=== PATIENT | male | born 1955 | race Two or more races ===

== ENCOUNTER 2016-09-05 18:52 | Inpatient (IN) | payer MEDICAID, OTHER ==
[~2016-09-05] VITALS: Ht 175.3 cm; Wt 86.5 kg
[~2016-09-05 18:52] MED LIST: HYDR10SO2; HYDR12.524; LISI-275; LISI-646; LORA-655; METO-158 PO; NIFEDICAL PO; [UNRECOGNIZED DRUG - CODE]
[2016-09-05] MEDS ORDERED: SODIUM CHLORIDE 0.9% 1,000 ML IV ONE (21:09)
[2016-09-05] MEDS ORDERED: ASPirin 81 mg TAB PO ONE (21:15)
[2016-09-05 21:52] LABS: Basophils # (auto) 0 uL; Basophils % (auto) 0.4 % (0.0-2.0); Eosinophils # (auto) 0 uL; Eosinophils % (auto) 0.3 % (0.0-7.0); Hematocrit 47.3 % (41.0-53.0); Lymphocytes # (auto) 1.7 uL; Lymphocytes % (auto) 20.4 % (10.0-50.0); Mean Corpuscular Hemoglobin 29.3 pg (28.0-32.0); Mean Corpuscular Hgb Conc. 33.8 g/dL (32.0-36.0); Mean Corpuscular Volume 86.7 fL (80.0-100.0); Mean Platelet Volume 7.9 fL (7.4-10.4); Monocytes # (auto) 0.3 uL; Monocytes % (auto) 3.8 % (0.0-12.0); Neutrophils # (auto) 6.1 uL; Neutrophils % (auto) 75.1 % (37.0-80.0); Platelet Count (auto) 236 10^3/uL (140-450); Red Cell Distribution Width 13.5 % (11.6-16.0); White Blood Cell 8.1 10^3/uL (4.4-10.8)
[2016-09-05 22:12] LABS: INR 1.04 (0.9-1.15); Partial Thromboplastin Time 27.1 sec (22.64-33.71); Prothrombin Time 10.7 sec (9.37-12.3)
[2016-09-05 22:17] LABS: Albumin 3.5 g/dL (3.4-5.0); BUN/Creatinine Ratio 13.1; Magnesium 2.3 mg/dL (1.6-2.6); Potassium 3.3 mmol/L (3.5-5.1)
[2016-09-05 22:36] LABS: Bilirubin, Total 0.3 mg/dL (0.2-1.0)
[2016-09-05 22:48] LABS: B-Type Natriuretic Peptide 55.16 pg/mL (0-100)
[2016-09-05 22:50] LABS: Temperature: 22.7 C (20.0-25.0)
[2016-09-06] VITALS (7 sets, daily range): BP systolic 143–164; BP diastolic 78–101
[2016-09-06] MEDS ORDERED: MORPHINE SULF INJ 2 MG/ML SYRINGE 1ML IV PRN
[2016-09-06] MEDS ORDERED: NITROGLYCERIN 0.4 MG SL TAB SL PRN
[2016-09-06] MEDS ORDERED: METOPROLOL TARTRATE 50 MG TAB PO ONE
[2016-09-06] MEDS ORDERED: ACETAMINOPHEN 325 MG TAB PO PRN
[2016-09-06] MEDS ORDERED: HYDROcodone-ACET 5/325MG TAB PO PRN
[2016-09-06] MEDS ORDERED: ONDANSETRON HCL 4 MG/2 ML VIAL IV PRN
[2016-09-06 06:03] LABS: Basophils # (auto) 0 uL; Basophils % (auto) 0.4 % (0.0-2.0); Eosinophils # (auto) 0.1 uL; Eosinophils % (auto) 0.9 % (0.0-7.0); Hematocrit 45.2 % (41.0-53.0); Hemoglobin 15.1 g/dL (13.5-17.5); Lymphocytes # (auto) 2.8 uL; Mean Corpuscular Hemoglobin 29.2 pg (28.0-32.0); Mean Corpuscular Hgb Conc. 33.4 g/dL (32.0-36.0); Mean Corpuscular Volume 87.6 fL (80.0-100.0); Mean Platelet Volume 8.1 fL (7.4-10.4); Monocytes # (auto) 0.7 uL; Monocytes % (auto) 7.6 % (0.0-12.0); Neutrophils # (auto) 5.4 uL; Neutrophils % (auto) 60.1 % (37.0-80.0); Platelet Count (auto) 242 10^3/uL (140-450)
[2016-09-06 06:35] LABS: Albumin 3.2 g/dL (3.4-5.0); BUN/Creatinine Ratio 17.1; Bilirubin, Total 0.7 mg/dL (0.2-1.0); Calcium 7.9 mg/dL (8.5-10.1); Total Protein 6.3 g/dL (6.4-8.2)
[2016-09-06 06:40] LABS: Potassium 2.9 mmol/L (3.5-5.1)
[2016-09-06] MEDS ORDERED: POTASSIUM CHL 20 Meq TABLET PO ONE (07:00)
[2016-09-06] MEDS: ASPirin 81 mg TAB PO SCH (09:20)
[2016-09-06] MEDS: FAMOTIDINE 20 MG TAB PO SCH ×2 (09:21→20:54)
[2016-09-06] MEDS: ENOXAPARIN SOD 40 MG/0.4 ML SYRINGE SC SCH (09:22)
[2016-09-06] MEDS: METOPROLOL TARTRATE 50 MG TAB PO SCH ×2 (09:22→20:54)
[2016-09-06] MEDS ORDERED: POTASSIUM CHL 20 Meq TABLET PO SCH (10:00)
[2016-09-06] MEDS ORDERED: POTASSIUM CHLORIDE 40 MEQ, LIDOCAINE 1% (LOCAL ANESTH.) 4 ML in SODIUM CHL 0.9% 250 ML IV ONE (10:00)
[2016-09-06] MEDS ORDERED: LISINOPRIL 5 MG TAB PO SCH (10:00)
[2016-09-06 10:20] LABS: Urine Bilirubin Negative (Negative); Urine Blood Negative /uL (Negative); Urine Color Yellow (Yellow); Urine Glucose Normal (Normal); Urine Ketone Negative (Negative); Urine Nitrite Negative (Negative); Urine RBC <1 /hpf (0 - 3); Urine Urobilinogen Normal (Negative)
[2016-09-06] MEDS: POTASSIUM CHL 20 Meq TABLET PO SCH ×2 (11:19→20:52)
[2016-09-07 05:01] VITALS: BP 149/86
[2016-09-07 05:43] LABS: BUN/Creatinine Ratio 14.3; Calcium 8.3 mg/dL (8.5-10.1); Magnesium 2.4 mg/dL (1.6-2.6); Potassium 3.3 mmol/L (3.5-5.1)
[2016-09-07 06:00] VITALS: BP_SYST 135; BP_SYST 140; BP_DIAS 77; BP_DIAS 85
[2016-09-07] MEDS ORDERED: POTASSIUM CHLORIDE 40 MEQ, LIDOCAINE 1% (LOCAL ANESTH.) 4 ML in SODIUM CHL 0.9% 250 ML IV ONE (10:30)
[2016-09-07] MEDS: ASPirin 81 mg TAB PO SCH (10:38)
[2016-09-07] MEDS: FAMOTIDINE 20 MG TAB PO SCH ×2 (10:38→21:56)
[2016-09-07] MEDS: POTASSIUM CHL 20 Meq TABLET PO SCH ×2 (10:39→21:56)
[2016-09-07] MEDS: METOPROLOL TARTRATE 50 MG TAB PO SCH ×2 (10:39→21:57)
[2016-09-07] MEDS: ENOXAPARIN SOD 40 MG/0.4 ML SYRINGE SC SCH (10:40)
[2016-09-07] MEDS: LISINOPRIL 10 MG TAB PO SCH (10:40)
[2016-09-07 13:00] VITALS: BP 156/96
[2016-09-07 17:00] VITALS: BP 149/99
[2016-09-07] MEDS: LABETALOL HCL 5 MG/ML 4ML SYRINGE IV PRN (21:14)
[2016-09-07 21:47] VITALS: BP 170/102
[2016-09-08 05:06] VITALS: BP 151/96
[2016-09-08 06:09] LABS: BUN/Creatinine Ratio 15.1; Calcium 8.6 mg/dL (8.5-10.1); Potassium 3.4 mmol/L (3.5-5.1)
[2016-09-08] MEDS: LABETALOL HCL 5 MG/ML 4ML SYRINGE IV PRN ×3 (07:56→15:35)
[2016-09-08 08:00] VITALS: BP 159/103
[2016-09-08 09:00] VITALS: BP 159/103
[2016-09-08] MEDS: ASPirin 81 mg TAB PO SCH (09:26)
[2016-09-08] MEDS: FAMOTIDINE 20 MG TAB PO SCH ×2 (09:26→22:27)
[2016-09-08] MEDS: ENOXAPARIN SOD 40 MG/0.4 ML SYRINGE SC SCH (09:26)
[2016-09-08] MEDS: POTASSIUM CHL 20 Meq TABLET PO SCH ×2 (09:26→22:27)
[2016-09-08] MEDS: METOPROLOL TARTRATE 50 MG TAB PO SCH ×2 (09:27→22:29)
[2016-09-08] MEDS: LISINOPRIL 10 MG TAB PO SCH (09:27)
[2016-09-08] MEDS ORDERED: LISINOPRIL 20 MG TAB PO SCH (10:00)
[2016-09-08 13:00] VITALS: BP 170/101
[2016-09-08] MEDS ORDERED: LISINOPRIL 20 MG TAB PO ONE (15:15)
[2016-09-08 16:33] VITALS: BP 159/104
[2016-09-08] MEDS: LISINOPRIL 20 MG TAB PO SCH (22:31)
[2016-09-08 22:42] VITALS: BP 134/69
[2016-09-09] VITALS (10 sets, daily range): BP systolic 119–165; BP diastolic 80–100
[2016-09-09] MEDS: METOPROLOL TARTRATE 50 MG TAB PO SCH (09:21)
[2016-09-09] MEDS: ASPirin 81 mg TAB PO SCH (09:21)
[2016-09-09] MEDS: LISINOPRIL 20 MG TAB PO SCH (09:22)
[2016-09-09] MEDS: ENOXAPARIN SOD 40 MG/0.4 ML SYRINGE SC SCH (09:22)
[2016-09-09] MEDS: POTASSIUM CHL 20 Meq TABLET PO SCH (09:22)
[2016-09-09] MEDS: FAMOTIDINE 20 MG TAB PO SCH (09:22)
== END 2016-09-09 18:10 | disposition home or self-care (01) | DRG 201 ==
LOC: EDBD 18:52 → ER 19:09 → TELE 19:10 → TELE-WESTW 09-06 01:19
PROVIDERS: ADMIT Internal Medicine; ATTEND Internal Medicine
DX: R00.2 Palpitations (principal); E44.1 Mild protein-calorie malnutrition; I10 Essential (primary) hypertension; E87.6 Hypokalemia; N40.0 Benign prostatic hyperplasia without lower urinary tract symptoms; Z82.49 Family history of ischemic heart disease and other diseases of the circulatory system; F41.9 Anxiety disorder, unspecified; I48.91 Unspecified atrial fibrillation; Z68.28 Body mass index [BMI] 28.0-28.9, adult
CPT/HCPCS: 36415; 71010; 80048; 80053; 81001; 83735; 83880; 84443; 84484; 85025; 85610; 85730; 93005; 93306; 96360; 99291; J2001; J2405; J3490

== ENCOUNTER 2016-09-10 15:31 | Observation (INO) | payer MEDICAID ==
[~2016-09-10] VITALS: Ht 167.6 cm; Wt 81.6 kg
[~2016-09-10 15:31] MED LIST changes: -HYDR10SO2; -HYDR12.524; -LISI-646; -LORA-655; -NIFEDICAL PO; -[UNRECOGNIZED DRUG - CODE]
[2016-09-10 16:08] LABS: Basophils # (auto) 0 uL; Basophils % (auto) 0.4 % (0.0-2.0); Eosinophils # (auto) 0 uL; Eosinophils % (auto) 0.3 % (0.0-7.0); Hemoglobin 16.4 g/dL (13.5-17.5); Lymphocytes # (auto) 1.6 uL; Lymphocytes % (auto) 20.3 % (10.0-50.0); Mean Corpuscular Hemoglobin 29.2 pg (28.0-32.0); Mean Corpuscular Hgb Conc. 33.4 g/dL (32.0-36.0); Mean Corpuscular Volume 87.5 fL (80.0-100.0); Mean Platelet Volume 7.8 fL (7.4-10.4); Monocytes # (auto) 0.5 uL; Monocytes % (auto) 6.5 % (0.0-12.0); Neutrophils # (auto) 5.8 uL; Neutrophils % (auto) 72.5 % (37.0-80.0); Platelet Count (auto) 257 10^3/uL (140-450); Red Cell Distribution Width 12.8 % (11.6-16.0)
[2016-09-10 16:19] LABS: INR 1.09 (0.9-1.15); Partial Thromboplastin Time 27.5 sec (22.64-33.71); Prothrombin Time 11.2 sec (9.37-12.3)
[2016-09-10 16:30] LABS: Albumin 3.7 g/dL (3.4-5.0); Alkaline Phosphatase 103 U/L (45-117); Anion Gap 10 (5-15); Aspartate Aminotransferase 29 U/L (15-37); BUN/Creatinine Ratio 15.2; Bilirubin, Total 0.8 mg/dL (0.2-1.0); Blood Urea Nitrogen 15 mg/dL (7-18); Calcium 8.5 mg/dL (8.5-10.1); Carbon Dioxide 25 mmol/L (21-32); Chloride 105 mmol/L (98-107); GFR African American 100 mL/min; GFR Non-African American 82 mL/min; Glucose 102 mg/dL (74-106); Magnesium 2.5 mg/dL (1.6-2.6); Potassium 4.1 mmol/L (3.5-5.1); Sodium 140 mmol/L (136-145); Total Protein 7.4 g/dL (6.4-8.2)
[2016-09-10] MEDS ORDERED: cloNIDine HCL 0.1 MG TAB PO ONE ×2 (18:30→22:30)
[2016-09-10] MEDS ORDERED: ASPirin-EC 81 mg tab PO ONE (22:00)
[2016-09-10] MEDS ORDERED: hydrALAZINE HCL 20 MG/ML VL IV ONE (23:15)
[2016-09-10] MEDS ORDERED: hydrALAZINE HCL 20 MG/ML VL ONE (23:32)
[2016-09-11 00:43] VITALS: BP 122/69
== END 2016-09-11 01:18 | disposition home or self-care (01) | DRG 198 ==
LOC: ER 15:31 → EDBD 15:31 → EDUNIT# 15:31 → UNDOADMOB 15:32 → TELE 15:32 → ER 09-11 01:18 → UNDODISOB 09-11 01:19
PROVIDERS: ADMIT Family Medicine; ATTEND Family Medicine
DX: R07.2 Precordial pain (principal); I25.10 Atherosclerotic heart disease of native coronary artery without angina pectoris; G45.9 Transient cerebral ischemic attack, unspecified; I10 Essential (primary) hypertension; Z82.49 Family history of ischemic heart disease and other diseases of the circulatory system; F41.9 Anxiety disorder, unspecified
CPT/HCPCS: 36415; 70450; 71020; 80053; 83735; 84484; 85025; 85610; 85730; 93005; 96374; 99285; G0378; J0360

== ENCOUNTER 2017-01-20 18:14 | Inpatient (IN) | payer MEDICAID ==
[~2017-01-20] VITALS: Ht 167.6 cm; Wt 80.9 kg
[2017-01-20 19:12] LABS: Urine RBC None Seen /hpf (0 - 3)
[2017-01-20 19:18] LABS: Urine Bilirubin Negative (Negative); Urine Blood Negative /uL (Negative); Urine Color Yellow (Yellow); Urine Glucose Normal (Normal); Urine Ketone Negative (Negative); Urine Nitrite Negative (Negative); Urine Urobilinogen Normal (Negative); Urine pH 6.5 (5.0-8.0)
[2017-01-20 19:24] LABS: Basophils # (auto) 0 uL; Basophils % (auto) 0.4 % (0.0-2.0); CONDITION Y; Eosinophils # (auto) 0 uL; Eosinophils % (auto) 0.1 % (0.0-7.0); Hematocrit 47.5 % (41.0-53.0); Hemoglobin 16.5 g/dL (13.5-17.5); Lymphocytes # (auto) 1.2 uL; Lymphocytes % (auto) 19.3 % (10.0-50.0); Mean Corpuscular Hgb Conc. 34.7 g/dL (32.0-36.0); Mean Corpuscular Volume 89.3 fL (80.0-100.0); Mean Platelet Volume 8.1 fL (7.4-10.4); Monocytes # (auto) 0.5 uL; Monocytes % (auto) 7.4 % (0.0-12.0); Neutrophils # (auto) 4.6 uL; Neutrophils % (auto) 72.8 % (37.0-80.0); Platelet Count (auto) 214 10^3/uL (140-450); Red Cell Distribution Width 13.2 % (11.6-16.0); White Blood Cell 6.3 10^3/uL (4.4-10.8)
[2017-01-20 19:41] LABS: Partial Thromboplastin Time 27.3 sec (22.64-33.71); Prothrombin Time 10.9 sec (9.37-12.3)
[2017-01-20 19:42] LABS: Albumin 3.7 g/dL (3.4-5.0); Alkaline Phosphatase 104 U/L (45-117); Anion Gap 10 (5-15); Aspartate Aminotransferase 14 U/L (15-37); BUN/Creatinine Ratio 13.3; Bilirubin, Total 0.4 mg/dL (0.2-1.0); Blood Urea Nitrogen 13 mg/dL (7-18); Calcium 8.2 mg/dL (8.5-10.1); Carbon Dioxide 24 mmol/L (21-32); Chloride 101 mmol/L (98-107); GFR African American 100 mL/min; GFR Non-African American 83 mL/min; Glucose 108 mg/dL (74-106); Magnesium 2.6 mg/dL (1.6-2.6); Potassium 4.1 mmol/L (3.5-5.1); Sodium 135 mmol/L (136-145); Total Protein 7.5 g/dL (6.4-8.2)
[2017-01-20] MEDS ORDERED: KETOROLAC TROMETH 30 MG/ML 1ML VIAL IM ONE (20:30)
[2017-01-21] VITALS (7 sets, daily range): BP systolic 130–156; BP diastolic 72–96
[2017-01-21] MEDS ORDERED: ACETAMINOPHEN 325 MG TAB PO PRN (03:30)
[2017-01-21] MEDS ORDERED: HYDROcodone-ACET 5/325MG TAB PO PRN (03:30)
[2017-01-21 04:11] LABS: Hematocrit 45.1 % (41.0-53.0); Hemoglobin 15.5 g/dL (13.5-17.5)
[2017-01-21] MEDS ORDERED: NIFE30TA76 PO (05:00)
[2017-01-21] MEDS ORDERED: ASPI-231 PO (05:00)
[2017-01-21] MEDS: METOPROLOL TARTRATE 50 MG TAB PO SCH ×3 (09:58→22:40)
[2017-01-21] MEDS: NIFEdipine ER 30 MG TAB PO SCH (10:05)
[2017-01-21] MEDS: PANTOPRAZOLE SODIUM 40 MG/10 ML VIAL IV SCH (10:11)
[2017-01-21] MEDS ORDERED: GOLYTELY 4L KIT PO ONE (12:15)
[2017-01-21] MEDS ORDERED: MAGNESIUM CITRATE SOLUTION 300 ML BTL PO ONE ×2 (15:30→15:45)
[2017-01-21] MEDS ORDERED: diphenhdrAMINE HCL 12.5 MG/5 ML UD PO ONE (15:30)
[2017-01-21] MEDS: TAMSULOSIN HYDROCHLORIDE 0.4 MG CAP PO SCH (17:55)
[2017-01-21] MEDS: ATORVASTATIN 20 MG TAB PO SCH (22:00)
[2017-01-22] MEDS: TAMSULOSIN HYDROCHLORIDE 0.4 MG CAP PO ONE ×2 (00:15→00:45)
[2017-01-22 05:23] VITALS: BP 142/76
[2017-01-22 07:08] LABS: Basophils # (auto) 0 uL; Basophils % (auto) 0.5 % (0.0-2.0); CONDITION Y; Eosinophils # (auto) 0.1 uL; Eosinophils % (auto) 0.8 % (0.0-7.0); Hematocrit 45.5 % (41.0-53.0); Hemoglobin 15.7 g/dL (13.5-17.5); Lymphocytes # (auto) 2.8 uL; Lymphocytes % (auto) 37.6 % (10.0-50.0); Mean Corpuscular Hemoglobin 30.7 pg (28.0-32.0); Mean Corpuscular Hgb Conc. 34.5 g/dL (32.0-36.0); Mean Corpuscular Volume 88.8 fL (80.0-100.0); Monocytes # (auto) 0.8 uL; Monocytes % (auto) 10.1 % (0.0-12.0); Neutrophils # (auto) 3.8 uL; Platelet Count (auto) 246 10^3/uL (140-450); Red Cell Distribution Width 13.3 % (11.6-16.0); White Blood Cell 7.5 10^3/uL (4.4-10.8)
[2017-01-22] MEDS ORDERED: diphenhdrAMINE HCL 50 MG/1 ML VL ONE (07:15)
[2017-01-22] MEDS ORDERED: SODIUM CHLORIDE LOCK 10 ML ONE (07:15)
[2017-01-22] MEDS ORDERED: LIDOCAINE VISCOUS 2% 15ML UD ONE (07:15)
[2017-01-22] MEDS ORDERED: MIDAZOLAM HCL 5 MG/ML-1ML VIAL ONE (07:15)
[2017-01-22 07:35] LABS: Albumin 3.3 g/dL (3.4-5.0); BUN/Creatinine Ratio 9.3; Bilirubin, Total 0.4 mg/dL (0.2-1.0); Calcium 8.5 mg/dL (8.5-10.1); Potassium 3.8 mmol/L (3.5-5.1); Total Protein 6.5 g/dL (6.4-8.2)
[2017-01-22 09:00] VITALS: BP 139/86
[2017-01-22] MEDS: PANTOPRAZOLE SODIUM 40 MG/10 ML VIAL IV SCH (09:41)
[2017-01-22] MEDS: METOPROLOL TARTRATE 50 MG TAB PO SCH ×2 (09:45→21:46)
[2017-01-22] MEDS: NIFEdipine ER 30 MG TAB PO SCH (09:45)
[2017-01-22] MEDS: fentaNYL CITRATE 100 MCG/2 ML VL ONE ×2 (10:39→10:42)
[2017-01-22] MEDS ORDERED: fentaNYL CITRATE 100 MCG/2 ML VL ONE (10:40)
[2017-01-22 13:00] VITALS: BP 152/91
[2017-01-22] MEDS: ONDANSETRON HCL 4 MG/2 ML VIAL IV PRN (14:24)
[2017-01-22] MEDS ORDERED: BISMUTH SUBSALICYLATE 262MG/15ml ORAL Susp PO ONE (15:30)
[2017-01-22 17:00] VITALS: BP 148/97
[2017-01-22] MEDS: TAMSULOSIN HYDROCHLORIDE 0.4 MG CAP PO SCH (18:00)
[2017-01-22] MEDS: ATORVASTATIN 20 MG TAB PO SCH (21:46)
[2017-01-22 22:04] VITALS: BP 152/93
[2017-01-23 05:21] VITALS: BP 155/89
[2017-01-23 05:44] LABS: Basophils # (auto) 0 uL; Basophils % (auto) 0.5 % (0.0-2.0); CONDITION Y; Eosinophils # (auto) 0 uL; Eosinophils % (auto) 0.6 % (0.0-7.0); Hematocrit 46.1 % (41.0-53.0); Hemoglobin 15.7 g/dL (13.5-17.5); Lymphocytes # (auto) 2.5 uL; Lymphocytes % (auto) 31.5 % (10.0-50.0); Mean Corpuscular Hemoglobin 30.4 pg (28.0-32.0); Mean Corpuscular Volume 89.4 fL (80.0-100.0); Mean Platelet Volume 8.1 fL (7.4-10.4); Monocytes # (auto) 0.5 uL; Monocytes % (auto) 6.9 % (0.0-12.0); Neutrophils # (auto) 4.8 uL; Neutrophils % (auto) 60.5 % (37.0-80.0); Platelet Count (auto) 242 10^3/uL (140-450); White Blood Cell 7.9 10^3/uL (4.4-10.8)
[2017-01-23 06:01] LABS: Albumin 3.2 g/dL (3.4-5.0); Calcium 8.2 mg/dL (8.5-10.1); Potassium 3.2 mmol/L (3.5-5.1)
[2017-01-23 06:03] LABS: BUN/Creatinine Ratio 15.3
[2017-01-23 06:06] LABS: Bilirubin, Total 0.6 mg/dL (0.2-1.0); Total Protein 6.4 g/dL (6.4-8.2)
[2017-01-23 09:00] VITALS: BP 124/74
[2017-01-23] MEDS ORDERED: POTASSIUM CHLORIDE 40 MEQ, LIDOCAINE 1% (LOCAL ANESTH.) 4 ML in SODIUM CHL 0.9% 250 ML IV ONE (09:45)
[2017-01-23] MEDS: METOPROLOL TARTRATE 50 MG TAB PO SCH ×2 (10:07→21:48)
[2017-01-23] MEDS: PANTOPRAZOLE SODIUM 40 MG/10 ML VIAL IV SCH (10:07)
[2017-01-23 13:00] VITALS: BP 136/85
[2017-01-23 16:53] VITALS: BP 149/93
[2017-01-23] MEDS: TAMSULOSIN HYDROCHLORIDE 0.4 MG CAP PO SCH (18:36)
[2017-01-23] MEDS: ONDANSETRON HCL 4 MG/2 ML VIAL IV PRN (21:13)
[2017-01-23] MEDS: HYDROCORTISONE 2.5% TOPICAL CREAM 30GM TUBE PR SCH (21:44)
[2017-01-23] MEDS: ATORVASTATIN 20 MG TAB PO SCH (21:56)
[2017-01-23 22:00] VITALS: BP 150/94
[2017-01-23] MEDS ORDERED: diphenhdrAMINE HCL 25 MG CAP PO ONE ×2 (22:09→22:15)
[2017-01-23] MEDS ORDERED: ACETAMINOPHEN 325 MG TAB PO ONE (22:15)
[2017-01-23] MEDS ORDERED: BISMUTH SUBSALICYLATE 262MG/15ml ORAL Susp PO ONE (22:30)
[2017-01-24 05:22] VITALS: BP 157/96
[2017-01-24 06:22] LABS: Basophils # (auto) 0 uL; Basophils % (auto) 0.6 % (0.0-2.0); CONDITION Y; Eosinophils # (auto) 0.1 uL; Eosinophils % (auto) 0.8 % (0.0-7.0); Hematocrit 43.9 % (41.0-53.0); Hemoglobin 15.1 g/dL (13.5-17.5); Lymphocytes # (auto) 2.6 uL; Lymphocytes % (auto) 36.3 % (10.0-50.0); Mean Corpuscular Hemoglobin 30.7 pg (28.0-32.0); Mean Corpuscular Hgb Conc. 34.3 g/dL (32.0-36.0); Mean Corpuscular Volume 89.3 fL (80.0-100.0); Mean Platelet Volume 8.3 fL (7.4-10.4); Monocytes # (auto) 0.6 uL; Monocytes % (auto) 7.7 % (0.0-12.0); Neutrophils # (auto) 3.9 uL; Neutrophils % (auto) 54.6 % (37.0-80.0); Platelet Count (auto) 240 10^3/uL (140-450); Red Cell Distribution Width 13.4 % (11.6-16.0); White Blood Cell 7.2 10^3/uL (4.4-10.8)
[2017-01-24 08:31] LABS: Potassium 3.2 mmol/L (3.5-5.1)
[2017-01-24 08:32] LABS: Albumin 3.2 g/dL (3.4-5.0); BUN/Creatinine Ratio 17.1; Bilirubin, Total 0.6 mg/dL (0.2-1.0); Calcium 8.3 mg/dL (8.5-10.1); Total Protein 6.4 g/dL (6.4-8.2)
[2017-01-24 09:00] VITALS: BP 151/95
[2017-01-24] MEDS: METOPROLOL TARTRATE 50 MG TAB PO SCH ×2 (09:22→21:53)
[2017-01-24] MEDS: PANTOPRAZOLE SODIUM 40 MG/10 ML VIAL IV SCH (09:22)
[2017-01-24] MEDS: HYDROCORTISONE 2.5% TOPICAL CREAM 30GM TUBE PR SCH ×2 (09:23→21:53)
[2017-01-24] MEDS ORDERED: BISMUTH SUBSALICYLATE 262 MG CHEW PO ONE (10:30)
[2017-01-24] MEDS: POTASSIUM CHLORIDE 40 MEQ, LIDOCAINE 1% (LOCAL ANESTH.) 4 ML in SODIUM CHL 0.9% 250 ML IV SCH ×2 (12:36→18:56)
[2017-01-24 13:00] VITALS: BP 145/86
[2017-01-24 16:47] VITALS: BP 177/92
[2017-01-24] MEDS ORDERED: diphenhdrAMINE HCL 25 MG CAP PO PRN (18:00)
[2017-01-24] MEDS: TAMSULOSIN HYDROCHLORIDE 0.4 MG CAP PO SCH (18:09)
[2017-01-24] MEDS ORDERED: diphenhdrAMINE HCL 25 MG CAP PO ONE (18:15)
[2017-01-24] MEDS: LABETALOL HCL 5 MG/ML ML 20ML VIAL IV PRN (18:34)
[2017-01-24 20:00] VITALS: BP 184/98
[2017-01-24] MEDS: ATORVASTATIN 20 MG TAB PO SCH (21:52)
[2017-01-24 22:00] VITALS: BP 184/98
[2017-01-25 05:30] VITALS: BP 174/101
[2017-01-25] MEDS: LABETALOL HCL 5 MG/ML ML 20ML VIAL IV PRN ×3 (05:53→11:48)
[2017-01-25 06:10] LABS: BUN/Creatinine Ratio 16.5; Calcium 8.1 mg/dL (8.5-10.1); Potassium 4.1 mmol/L (3.5-5.1)
[2017-01-25 09:00] VITALS: BP 169/102
[2017-01-25] MEDS ORDERED: METOPROLOL TARTRATE 50 MG TAB PO SCH (10:00)
[2017-01-25] MEDS: PANTOPRAZOLE SODIUM 40 MG/10 ML VIAL IV SCH (10:04)
[2017-01-25] MEDS: HYDROCORTISONE 2.5% TOPICAL CREAM 30GM TUBE PR SCH (10:05)
[2017-01-25 13:00] VITALS: BP 185/111
== END 2017-01-25 18:36 | disposition home or self-care (01) | DRG 254 ==
LOC: ER 18:21 → CENTRAL 18:22 → TELE-CENTR 01-24 18:09
PROVIDERS: ADMIT Internal Medicine; ATTEND Internal Medicine
PROC: 0DJ08ZZ Inspection of Upper Intestinal Tract, Via Natural or Artificial Opening Endoscopic (ICD-10-PCS; principal; 2017-01-22 10:37)
PROC: 0DBN8ZZ Excision of Sigmoid Colon, Via Natural or Artificial Opening Endoscopic (ICD-10-PCS; 2017-01-22 10:37)
DX: K64.4 Residual hemorrhoidal skin tags (principal); G45.9 Transient cerebral ischemic attack, unspecified; I10 Essential (primary) hypertension; D12.5 Benign neoplasm of sigmoid colon; R13.10 Dysphagia, unspecified; K92.2 Gastrointestinal hemorrhage, unspecified; E66.9 Obesity, unspecified; N40.0 Benign prostatic hyperplasia without lower urinary tract symptoms; E87.6 Hypokalemia; F41.9 Anxiety disorder, unspecified; I25.10 Atherosclerotic heart disease of native coronary artery without angina pectoris; K57.30 Diverticulosis of large intestine without perforation or abscess without bleeding; M47.812 Spondylosis without myelopathy or radiculopathy, cervical region; R91.1 Solitary pulmonary nodule; M77.9 Enthesopathy, unspecified; N32.0 Bladder-neck obstruction; Z82.49 Family history of ischemic heart disease and other diseases of the circulatory system; Z87.891 Personal history of nicotine dependence; Z88.8 Allergy status to other drugs, medicaments and biological substances; Z68.28 Body mass index [BMI] 28.0-28.9, adult
CPT/HCPCS: 36415; 70450; 71010; 72125; 74176; 80048; 80053; 81001; 83735; 84484; 85014; 85018; 85025; 85610; 85730; 86850; 86900; 86901; 93005; 96372; 96374; C9113; J1885; J2001; J2250; J2405

== ENCOUNTER 2017-03-13 18:47 | Inpatient (IN) | payer MEDICAID ==
[~2017-03-13] VITALS: Ht 170.2 cm; Wt 80.2 kg
[~2017-03-13 18:47] MED LIST changes: +ASPI-231 PO; -LISI-275
[2017-03-13] MEDS ORDERED: SODIUM CHLORIDE 0.9% 1,000 ML IV ONE (19:51)
[2017-03-13] MEDS ORDERED: diphenhdrAMINE HCL 50 MG/1 ML VL IV ONE (20:00)
[2017-03-13] MEDS ORDERED: methylPREDNISolone SOD SUCC 125 MG/2 ML VL IV ONE (20:00)
[2017-03-13] MEDS ORDERED: amLODIPine BESYLATE 5 MG TAB PO ONE (22:45)
[2017-03-13] MEDS ORDERED: ONDANSETRON HCL 4 MG/2 ML VIAL IV ONE (23:15)
[2017-03-13] MEDS ORDERED: HYDROmorphone HCL 2 MG/ML VL IV ONE (23:15)
[2017-03-14] MEDS ORDERED: VALSARTAN 80 MG TAB PO ONE
[2017-03-14] MEDS ORDERED: ACETAMINOPHEN 325 MG TAB PO PRN (03:45)
[2017-03-14 04:14] LABS: Basophils # (auto) 0 uL; Basophils % (auto) 0.3 % (0.0-2.0); Eosinophils # (auto) 0 uL; Hematocrit 48.1 % (41.0-53.0); Hemoglobin 16.6 g/dL (13.5-17.5); Lymphocytes # (auto) 0.3 uL; Lymphocytes % (auto) 6.3 % (10.0-50.0); Mean Corpuscular Hemoglobin 30.6 pg (28.0-32.0); Mean Corpuscular Hgb Conc. 34.6 g/dL (32.0-36.0); Mean Corpuscular Volume 88.6 fL (80.0-100.0); Mean Platelet Volume 7.3 fL (6.9-10.8); Monocytes # (auto) 0.1 uL; Monocytes % (auto) 2.9 % (0.0-12.0); Neutrophils # (auto) 4.5 uL; Neutrophils % (auto) 90.5 % (37.0-80.0); Nucleated Red Blood Cells % 0.1 %; Platelet Count (auto) 209 10^3/uL (140-450); Red Cell Distribution Width 13.3 % (11.8-14.3)
[2017-03-14 04:36] LABS: Albumin 3.4 g/dL (3.4-5.0); BUN/Creatinine Ratio 17.7; Bilirubin, Total 0.6 mg/dL (0.2-1.0); Calcium 8.6 mg/dL (8.5-10.1); Potassium 3.7 mmol/L (3.5-5.1); Total Protein 6.9 g/dL (6.4-8.2)
[2017-03-14] MEDS: METOPROLOL TARTRATE 25 MG TAB PO SCH ×2 (10:00→21:38)
[2017-03-14] MEDS: amLODIPine BESYLATE 5 MG TAB PO SCH (10:15)
[2017-03-14] MEDS: FAMOTIDINE 20 MG TAB PO SCH ×2 (10:15→21:44)
[2017-03-14] MEDS: ENOXAPARIN SOD 40 MG/0.4 ML SYRINGE SC SCH (10:16)
[2017-03-14 10:42] VITALS: BP 119/74
[2017-03-14 12:31] VITALS: BP 134/87
[2017-03-14 17:17] VITALS: BP 139/80
[2017-03-14 22:17] VITALS: BP 142/80
[2017-03-15 05:16] VITALS: BP 158/94
[2017-03-15] MEDS: HYDROcodone-ACET 5/325MG TAB PO PRN ×3 (05:18→05:32)
[2017-03-15 08:58] VITALS: BP 158/92
[2017-03-15] MEDS: FAMOTIDINE 20 MG TAB PO SCH ×2 (09:45→22:41)
[2017-03-15] MEDS: amLODIPine BESYLATE 5 MG TAB PO SCH (09:46)
[2017-03-15] MEDS: ENOXAPARIN SOD 40 MG/0.4 ML SYRINGE SC SCH (09:46)
[2017-03-15] MEDS ORDERED: METOPROLOL TARTRATE 25 MG TAB PO SCH (10:00)
[2017-03-15] MEDS ORDERED: VALSARTAN 80 MG TAB PO ONE (11:00)
[2017-03-15] MEDS: ONDANSETRON HCL 4 MG/2 ML VIAL IV PRN ×3 (11:01→22:41)
[2017-03-15 12:01] VITALS: BP_SYST 146; BP_SYST 151; BP_DIAS 88; BP_DIAS 91
[2017-03-15 14:34] VITALS: BP 131/84
[2017-03-15] MEDS ORDERED: diphenhdrAMINE HCL 50 MG/1 ML VL IM ONE (16:00)
[2017-03-15] MEDS ORDERED: diphenhdrAMINE HCL 50 MG/1 ML VL IV ONE (16:15)
[2017-03-15 17:16] VITALS: BP 147/92
[2017-03-15 21:57] VITALS: BP 153/96
[2017-03-16 05:00] VITALS: BP 157/101
[2017-03-16 08:21] VITALS: BP 135/85
[2017-03-16] MEDS ORDERED: VALSARTAN 80 MG TAB PO SCH (10:00)
[2017-03-16] MEDS ORDERED: amLODIPine BESYLATE 5 MG TAB PO SCH (10:00)
[2017-03-16] MEDS: ENOXAPARIN SOD 40 MG/0.4 ML SYRINGE SC SCH (10:44)
[2017-03-16] MEDS: FAMOTIDINE 20 MG TAB PO SCH (10:44)
[2017-03-16 12:54] VITALS: BP 146/91
[2017-03-16 16:48] VITALS: BP 157/93
[2017-03-16 18:00] VITALS: BP 157/93
== END 2017-03-16 18:40 | disposition home or self-care (01) | DRG 199 ==
LOC: EDBD 18:47 → ER 18:53 → OVERFLOW 18:54 → WEST WING 03-14 08:19
PROVIDERS: ADMIT Internal Medicine; ATTEND Internal Medicine
DX: I16.1 Hypertensive emergency (principal); F41.9 Anxiety disorder, unspecified; R06.02 Shortness of breath; I25.10 Atherosclerotic heart disease of native coronary artery without angina pectoris; N40.0 Benign prostatic hyperplasia without lower urinary tract symptoms; R51 Headache; T44.8X5A Adverse effect of centrally-acting and adrenergic-neuron-blocking agents, initial encounter; Y92.89 Other specified places as the place of occurrence of the external cause; Z82.49 Family history of ischemic heart disease and other diseases of the circulatory system; Z88.8 Allergy status to other drugs, medicaments and biological substances; Z88.4 Allergy status to anesthetic agent; Z79.82 Long term (current) use of aspirin; Z79.899 Other long term (current) drug therapy; T78.40XA Allergy, unspecified, initial encounter
CPT/HCPCS: 36415; 51702; 71010; 80053; 80061; 84443; 85025; 87081; 93005; 94761; 96361; 96374; 96375; J2405

== ENCOUNTER 2018-09-11 19:44 | Inpatient (IN) | payer MEDICAID | END 2018-09-13 16:16 | disposition home or self-care (01) | LOC: ER 19:44 → OVERFLOW 09-12 06:03 → TELE-CENTR 09-12 17:04 | DX: T78.3XXA Angioneurotic edema, initial encounter (principal); D68.69 Other thrombophilia; R65.10 Systemic inflammatory response syndrome (SIRS) of non-infectious origin without acute organ dysfunction; I48.92 Unspecified atrial flutter; I16.1 Hypertensive emergency; F41.9 Anxiety disorder, unspecified; I25.10 Atherosclerotic heart disease of native coronary artery without angina pectoris ==

== ENCOUNTER 2019-04-29 14:07 | Emergency (ER) | payer MEDICAID ==
[~2019-04-29] VITALS: Ht 167.6 cm; Wt 86.2 kg
[2019-04-29] MEDS ORDERED: cloNIDine HCL 0.1 MG TAB ONE (14:14)
[2019-04-29] MEDS ORDERED: cloNIDine HCL 0.1 MG TAB PO ONE (14:30)
[2019-04-29 14:40] LABS: Basophils # (auto) 0.1 uL; Basophils % (auto) 1.3 % (0.0-2.0); Eosinophils # (auto) 0 uL; Eosinophils % (auto) 0.9 % (0.0-7.0); Hematocrit 46.7 % (41.0-53.0); Hemoglobin 16.2 g/dL (13.5-17.5); Lymphocytes # (auto) 1.6 uL; Lymphocytes % (auto) 35.1 % (10.0-50.0); Mean Corpuscular Hemoglobin 29.2 pg (28.0-32.0); Mean Corpuscular Hgb Conc. 34.6 g/dL (32.0-36.0); Mean Corpuscular Volume 84.2 fL (80.0-100.0); Monocytes # (auto) 0.5 uL; Monocytes % (auto) 10.8 % (0.0-12.0); Neutrophils # (auto) 2.4 uL; Neutrophils % (auto) 51.9 % (37.0-80.0); Nucleated Red Blood Cells % 0.2 %; Platelet Count (auto) 167 10^3/uL (140-450); Red Blood Cells 5.55 10^6/uL (4.5-5.90); Red Cell Distribution Width 13.8 % (11.8-14.3); White Blood Cell 4.6 10^3/uL (4.4-10.8)
[2019-04-29 14:57] LABS: Albumin 3.4 g/dL (3.4-5.0); Anion Gap 6 (5-15); Blood Urea Nitrogen 17 mg/dL (7-18); Calcium 7.9 mg/dL (8.5-10.1); Carbon Dioxide 27 mmol/L (21-32); Chloride 103 mmol/L (98-107); Glucose 92 mg/dL (74-106); Potassium 3.4 mmol/L (3.5-5.1); Sodium 136 mmol/L (136-145)
[2019-04-29 15:03] LABS: Alanine Aminotransferase 41 U/L (16-61); Alkaline Phosphatase 82 U/L (45-117); Aspartate Aminotransferase 40 U/L (15-37); BUN/Creatinine Ratio 19.3; GFR African American 113 mL/min; GFR Non-African American 93 mL/min; Total Protein 7.2 g/dL (6.4-8.2)
[2019-04-29 15:23] LABS: Urine WBC None Seen /hpf (0 - 3)
[2019-04-29 15:35] LABS: Urine Bacteria NONE SEEN /hpf (None Seen); Urine Blood Negative /uL (Negative); Urine Specific Gravity 1.005 (1.001-1.035)
[2019-04-29 16:22] VITALS: BP 166/82
== END 2019-04-29 16:22 | disposition home or self-care (01) ==
LOC: ER 14:07
DX: I10 Essential (primary) hypertension (principal); R51 Headache; R42 Dizziness and giddiness; I25.10 Atherosclerotic heart disease of native coronary artery without angina pectoris; Z88.8 Allergy status to other drugs, medicaments and biological substances; Z79.82 Long term (current) use of aspirin; Z79.899 Other long term (current) drug therapy
CPT/HCPCS: 36415; 70450; 71046; 80053; 81001; 84484; 85025; 93005

== ENCOUNTER 2019-05-19 15:53 | Inpatient (IN) | payer MEDICAID ==
[~2019-05-19] VITALS: Ht 167.6 cm; Wt 91.8 kg
[2019-05-19] MEDS ORDERED: cloNIDine HCL 0.1 MG TAB PO ONE ×4 (17:00→22:15)
[2019-05-19] MEDS ORDERED: NIFEdipine ER 30 MG TAB PO ONE (17:15)
[2019-05-19 17:18] LABS: Basophils # (auto) 0.1 uL; Basophils % (auto) 0.8 % (0.0-2.0); Eosinophils # (auto) 0 uL; Eosinophils % (auto) 0.2 % (0.0-7.0); Hematocrit 45.1 % (41.0-53.0); Hemoglobin 16.2 g/dL (13.5-17.5); Lymphocytes # (auto) 1.6 uL; Lymphocytes % (auto) 21.4 % (10.0-50.0); Mean Corpuscular Hemoglobin 29.6 pg (28.0-32.0); Mean Corpuscular Hgb Conc. 35.9 g/dL (32.0-36.0); Mean Corpuscular Volume 82.4 fL (80.0-100.0); Monocytes # (auto) 0.4 uL; Monocytes % (auto) 4.9 % (0.0-12.0); Neutrophils # (auto) 5.5 uL; Neutrophils % (auto) 72.7 % (37.0-80.0); Platelet Count (auto) 202 10^3/uL (140-450); Red Blood Cells 5.47 10^6/uL (4.5-5.90); Red Cell Distribution Width 14.2 % (11.8-14.3); White Blood Cell 7.6 10^3/uL (4.4-10.8)
[2019-05-19 17:26] LABS: Albumin 3.7 g/dL (3.4-5.0); Anion Gap 6 (5-15); Blood Urea Nitrogen 18 mg/dL (7-18); Carbon Dioxide 27 mmol/L (21-32); Chloride 103 mmol/L (98-107); Glucose 92 mg/dL (74-106); Magnesium 2.4 mg/dL (1.6-2.6); Potassium 3.4 mmol/L (3.5-5.1); Sodium 136 mmol/L (136-145)
[2019-05-19] MEDS ORDERED: METOPROLOL TARTRATE 50 MG TAB PO ONE (17:30)
[2019-05-19 17:32] LABS: Alanine Aminotransferase 29 U/L (16-61); Alkaline Phosphatase 97 U/L (45-117); Aspartate Aminotransferase 19 U/L (15-37); BUN/Creatinine Ratio 16.8; Bilirubin, Total 0.7 mg/dL (0.2-1.0); GFR African American 90 mL/min; GFR Non-African American 74 mL/min; Total Protein 7.2 g/dL (6.4-8.2)
[2019-05-19] MEDS ORDERED: cloNIDine HCL 0.1 MG TAB ONE (18:10)
[2019-05-19 20:42] LABS: Urine WBC None Seen /hpf (0 - 3)
[2019-05-19 20:58] LABS: Urine Bacteria NONE SEEN /hpf (None Seen); Urine Blood Negative /uL (Negative); Urine Specific Gravity 1.005 (1.001-1.035)
[2019-05-19] MEDS ORDERED: hydrALAZINE HCL 20 MG/ML VL IV ONE (22:30)
[2019-05-19] MEDS ORDERED: ENALAPRILAT 1.25 MG/ML-1ML VIAL IV ONE (23:00)
[2019-05-20] VITALS (8 sets, daily range): BP systolic 131–193; BP diastolic 77–104
[2019-05-20] MEDS ORDERED: ENALAPRIL MALEATE 2.5 MG TAB PO ONE (00:45)
[2019-05-20] MEDS ORDERED: ACETAMINOPHEN 325 MG TAB PO PRN (00:45)
[2019-05-20] MEDS ORDERED: POTASSIUM CHL 20 Meq TABLET PO ONE (00:45)
[2019-05-20] MEDS ORDERED: ONDANSETRON HCL 4 MG/2 ML VIAL IV PRN (00:45)
--- NOTE | 2019-05-20 02:30 | NUR ---
MS admit from ER JACIEL GOMEZ admitted to [facility]. Patient oriented to Maris rodriguez RN, unit, room, bed, and unit policies regarding patient care and visiting hours. Patient weighed by bedscale and encouraged to call if they need something. All questions and concerns addressed, patient verbalized understanding. PATIENT A/OX4, PRIMARILY YAKUT SPEAKING. DENIES ANY PAIN OR DISCOMFORT. IV TO LEFT HAND 20G INTACT AND PATENT. PATIENT ABLE TO AMBULATE WITHOUT DIFFICULTY.
[2019-05-20] MEDS ORDERED: MET50T PO (04:52)
--- NOTE | 2019-05-20 07:03 | NUR ---
CLOSING PATIENT IS SLEEPING. NO S/S OF DISTRESS NOTED. CALL LIGHT WITHIN REACH WILL ENDORSE CARE TO AM SHIFT RN
[2019-05-20] MEDS ORDERED: METOPROLOL TARTRATE 50 MG TAB PO SCH (10:00)
[2019-05-20] MEDS ORDERED: ENALAPRIL MALEATE 2.5 MG TAB PO SCH (10:00)
[2019-05-20] MEDS: FAMOTIDINE 20 MG TAB PO SCH ×2 (10:12→22:03)
[2019-05-20] MEDS: FINASTERIDE 5 MG TAB PO SCH (10:12)
[2019-05-20] MEDS: diphenhdrAMINE HCL 25 MG CAP PO PRN (12:28)
[2019-05-20] MEDS ORDERED: METOPROLOL TARTRATE 25 MG TAB PO ONE (14:15)
--- NOTE | 2019-05-20 14:30 | NUR ---
Awaiting Metoprolol verification from Pharmacist in order to medicate as ordered. This rn called and spoke to tech, pharmacist will verify.
--- NOTE | 2019-05-20 16:26 | NUR ---
Increased BP MD Golden aware of patient's increased BP. Patient was given clonidine in the ER and no adverse reactions reported per patient. Patient requesting clonidine be given for increased BP. New orders received will medicate as ordered and cont care
[2019-05-20] MEDS ORDERED: cloNIDine HCL 0.1 MG TAB PO ONE (16:45)
[2019-05-20] MEDS ORDERED: cloNIDine HCL 0.1 MG TAB PO PRN (16:45)
--- NOTE | 2019-05-20 19:30 | NUR ---
OPENING NOTE REPORT RECEIVED FROM DAY SHIFT RN. PATIENT IS A/OX4 RESTING IN BED. NO S/S OF DISTRESS NOTED. PHYSICAL ASSESSMENT DONE-SEE INTERVENTIONS. IV TO LEFT HAND INTACT AND PATENT PLACED ON 05/19/19. POC DISCUSSED WITH PATIENT AND ALL QUESTIONS ANSWERED. WILL MONITOR Q1H PRN THROUGHOUT SHIFT. CALL LIGHT WITHIN REACH.
[2019-05-20] MEDS: METOPROLOL TARTRATE 50 MG TAB PO SCH (22:00)
--- NOTE | 2019-05-20 22:04 | NUR ---
MED HELD METOPROLOL HELD AT THIS TIME. MANUAL PULSE TAKEN AND HEART RATE AT 54BPM CURRENT BP AT 146/92
--- NOTE | 2019-05-21 00:21 | NUR ---
Assumed care of the patient: Assumed care of patient, awake and alert. No S/S of distress/SOB or pain. Instructed on POC and to call for assist PRN, will continue to monitor for changes Q1hr and PRN.
--- NOTE | 2019-05-21 00:32 | NUR ---
SBAR REPORT GIVEN TO CHAU PERRY PATIENT IS SLEEPING AT THIS TIME. NO S/S OF DISTRESS NOTED. CALL LIGHT WITHIN REACH.
[2019-05-21 05:45] VITALS: BP 150/93
--- NOTE | 2019-05-21 06:00 | NUR ---
Hospitalist paged: Hospitalist paged d/t patient having an elevated blood pressure and patient did not have his night time dose of Metoprolol d/t a low heart rate. Patient asking RN to take his AM Metoprolol but not yet scheduled. Hospitalist paged to make aware of patient condition. RN waiting for call back.
[2019-05-21 06:27] LABS: BUN/Creatinine Ratio 17.9; Calcium 8.3 mg/dL (8.5-10.1); Potassium 3.7 mmol/L (3.5-5.1)
--- NOTE | 2019-05-21 06:47 | NUR ---
Hospitalist returned page: Hospitalist updated on patient condition and situation. Patient is to take scheduled AM blood pressure medication at 1000.
[2019-05-21 08:30] VITALS: BP 169/94
--- NOTE | 2019-05-21 09:10 | NUR ---
Hospitalist at bedside MD Golden at bedside, aware of patient's status including increased BP. New orders received for Cardio consult. Cont care
[2019-05-21] MEDS: FAMOTIDINE 20 MG TAB PO SCH ×3 (10:00→22:00)
[2019-05-21] MEDS: FINASTERIDE 5 MG TAB PO SCH (10:00)
[2019-05-21] MEDS: METOPROLOL TARTRATE 50 MG TAB PO SCH ×2 (10:07→22:12)
[2019-05-21] MEDS: diphenhdrAMINE HCL 25 MG CAP PO PRN (10:19)
[2019-05-21] MEDS ORDERED: cloNIDine HCL 0.1 MG TAB PO ONE ×2 (11:15→17:30)
[2019-05-21 12:00] VITALS: BP 206/113
--- NOTE | 2019-05-21 13:25 | NUR ---
Cardio at bedside Ewing at bedside. MD aware of patient's status including increased BP. MD spoke to patient extensively regarding POC. New orders received for Aldomet. Will medicate as ordered.
[2019-05-21] MEDS ORDERED: METHYLDOPA 250 MG TAB PO ONE (13:30)
--- NOTE | 2019-05-21 16:40 | NUR ---
Increased BP Patient's bp still elevated. MD Ewing paged to notify. New orders received for clonidine 0.2mg po once now and clonidine 0.2mg po q2hr prn SBP >160. Per MD Ewing Manuel will take a while to work so also medicate with clonidine as ordered.
[2019-05-21 17:00] VITALS: BP 196/103
[2019-05-21] MEDS: METHYLDOPA 250 MG TAB PO SCH (18:35)
--- NOTE | 2019-05-21 18:35 | NUR ---
BP reassessed 135/80 will medicate with Aldomet as ordered per MD Ewing. Patient denies any pain. No distress or sob noted. Patient instructed to report any adverse reactions to primary rn he verbalized understanding.
--- NOTE | 2019-05-21 18:55 | NUR ---
Patient care endorsed endorsed care to Camacho cloud. Patient laying comfortably in bed, no distress or sob noted. Call light within reach.
--- NOTE | 2019-05-21 19:00 | NUR ---
Opening Shift Note Assumed care of patient, awake and alert. No S/S of distress/SOB or pain. Instructed on POC and to call for assist PRN, will continue to monitor for changes Q1hr and PRN.
[2019-05-21 22:00] VITALS: BP 168/86
--- NOTE | 2019-05-22 00:32 | NUR ---
IV removal Patient complained of pain in left hand at IV site. IV DC'd with clean sterile technique, catheter fully intact. Pressure dressing applied to site. Patient tolerated well.
[2019-05-22 04:51] VITALS: BP 155/106
--- NOTE | 2019-05-22 05:00 | NUR ---
IV insertion IV access to left hand obtained, via clean sterile technique by inserting 22 gauge catheter after first attempt. IV secured properly. No trauma to site. Patient tolerated procedure well.
[2019-05-22] MEDS: METHYLDOPA 250 MG TAB PO SCH ×5 (05:33→22:57)
--- NOTE | 2019-05-22 05:50 | NUR ---
Patient refused his 0600 Aldomet. Patient stated the medications makes him anxious, restless and experience short term memory loss; per patient. Day shift RN to be made aware of patients complaints. RN notes no side effects of any kind to the patient. Patient noted to be alert and oriented with no discomfort or distress.
[2019-05-22] MEDS: cloNIDine HCL 0.1 MG TAB PO PRN ×3 (06:01→22:30)
--- NOTE | 2019-05-22 08:06 | NUR ---
SPOKE TO [employer] WHO INFORMED ME THAT PATIENT ATE BREAKFAST SO RENAL ARTERY US CON NOT BE DONE FOR 8 HOURS AND HE IS LEAVING AT 10 A.M. SO US CAN'T BE DONE UNTIL TOMORROW MORNING.
--- NOTE | 2019-05-22 08:36 | NUR ---
DR JACKSON AT BEDSIDE. SHE WANTS TELE PSYCH FOR ANXIETY.
[2019-05-22 09:00] VITALS: BP 143/83
[2019-05-22] MEDS ORDERED: POTASSIUM CHL 20 Meq TABLET PO ONE (09:00)
[2019-05-22] MEDS: FINASTERIDE 5 MG TAB PO SCH ×2 (09:30→09:46)
[2019-05-22] MEDS: FAMOTIDINE 20 MG TAB PO SCH ×3 (09:31→22:00)
[2019-05-22] MEDS: METOPROLOL TARTRATE 50 MG TAB PO SCH ×2 (09:40→22:00)
--- NOTE | 2019-05-22 11:51 | NUR ---
PATIENT REFUSED TO DO TELE PSYCH. HE STATES HE DOES NOT NEED IT. WILL PAGE DR JACKSON.
[2019-05-22 13:00] VITALS: BP 165/91
[2019-05-22 17:00] VITALS: BP 187/97
--- NOTE | 2019-05-22 19:30 | NUR ---
Opening Shift Note: A&Ox4, speaks American but Indonesian is the primary language. Room air, pain level 0/10, and ambulates independently without assistive devices. Bed locked in lowest position, side rails up x2, and call light within reach. IV 22 g in left hand IID inserted on 05/20/19. Skin intact. POC discussed and questions answered. NPO at 0000 for renal artery imaging on 05/23/19 to r/o renal artery stenosis. Will continue to round prn.
--- NOTE | 2019-05-22 22:00 | NUR ---
2200 medications: Patient is refusing 2200 pepcid and metoprolol held related to bradycardia HR in high 50s.
--- NOTE | 2019-05-22 22:30 | NUR ---
High BP: Current BP 179/91. Catapres prn 0.2 mg given per order of SBP >160. Will recheck in one hour.
--- NOTE | 2019-05-22 23:40 | NUR ---
Retake BP after 0.2 mg of catapres is 171/103 in left arm with HR 61; 171/104 in right arm with HR 60. Will page at 0000 for possible new BP med orders.
[2019-05-22 23:41] VITALS: BP 174/92
--- NOTE | 2019-05-23 | NUR ---
Page sent to applications consultant hospitalist in regards to patient's elevated blood pressure.
[2019-05-23] MEDS ORDERED: ENALAPRILAT 1.25 MG/ML-1ML VIAL IV ONE ×2 (00:45→02:45)
[2019-05-23 01:09] VITALS: BP 154/101
--- NOTE | 2019-05-23 01:45 | NUR ---
Patient refusal of Enalapril: Per pharmacy, was asked to verify patient's allergies to valsartan to activate enalapril order. Patient states he will not take anything that could cause a possible reaction. Patient educated on the difference between side effects and allergies. Patient still unable to tell me exactly what reaction he had to valsartan. Will page at the appropriate time for another BP option. Current BP is 154/101 and HR is 62.
--- NOTE | 2019-05-23 02:00 | NUR ---
Page sent for alternative BP medication for enalapril related to patient refusal due to possible conflicting allergy.
--- NOTE | 2019-05-23 03:09 | NUR ---
One time dose 2.5 enalapril confirmed with molten iron pourer hospitalist and education provided to the patient on the medication. Patient is received this medication in the emergency room per hospitalist with no adverse reactions. Patient agreed to take. We trend BP values
[2019-05-23] MEDS: METHYLDOPA 250 MG TAB PO SCH ×2 (06:00→12:00)
[2019-05-23 06:01] VITALS: BP 159/92
--- NOTE | 2019-05-23 06:01 | NUR ---
BP retake after 2.5 mg enalapril IV x1 is 159/92 and HR 57. No medication administration at this time. Patient is still refusing Methyldopa 0600 dose.
[2019-05-23 06:20] VITALS: BP 150/86
[2019-05-23 07:04] LABS: Magnesium 2.3 mg/dL (1.6-2.6); Potassium 3.8 mmol/L (3.5-5.1)
[2019-05-23 09:11] VITALS: BP 150/89
--- NOTE | 2019-05-23 09:23 | NUR ---
PATIENT STATED HE IS NAUSEATED. MEDICATED WITH ZOFRAN. DRAFTER TOOL DESIGN AT BEDSIDE TO DO RENAL ARTERY US. PATIENT REFUSED TO LAY DOWN. STATES HE IS TOO NAUSEATED AND BLOATED.
[2019-05-23] MEDS: FAMOTIDINE 20 MG TAB PO SCH (09:55)
[2019-05-23] MEDS: diphenhdrAMINE HCL 25 MG CAP PO PRN (09:55)
[2019-05-23] MEDS: FINASTERIDE 5 MG TAB PO SCH (09:55)
[2019-05-23] MEDS ORDERED: METOPROLOL TARTRATE 25 MG TAB PO SCH (10:49)
[2019-05-23] MEDS: cloNIDine HCL 0.1 MG TAB PO PRN (12:00)
[2019-05-23 12:31] VITALS: BP 186/103
[2019-05-23] MEDS ORDERED: MET250T PO (12:49)
[2019-05-23 13:27] VITALS: BP 186/103
[2019-05-23] MEDS ORDERED: CLON0.1T PO (14:41)
--- NOTE | 2019-05-23 15:20 | NUR ---
IV REMOVED DISCHARGE INSTRUCTIONS GIVEN PATIENT VERBALIZED UNDERSTANDING NO SIGNS OF DISTRESS. PATIENT WAITING FOR TO PICK HIM UP.
== END 2019-05-23 17:00 | disposition home or self-care (01) | DRG 199 ==
LOC: ER 15:53 → OVERFLOW 15:54 → WEST WING 05-20 02:28 → TELE-WESTW 05-22 23:07
PROVIDERS: ADMIT Nurse Practitioner; ATTEND Internal Medicine
DX: I16.0 Hypertensive urgency (principal); I48.0 Paroxysmal atrial fibrillation; E66.9 Obesity, unspecified; I25.10 Atherosclerotic heart disease of native coronary artery without angina pectoris; I10 Essential (primary) hypertension; F41.9 Anxiety disorder, unspecified; E87.6 Hypokalemia; Z88.9 Allergy status to unspecified drugs, medicaments and biological substances; Z91.19 Patient's noncompliance with other medical treatment and regimen; Z88.8 Allergy status to other drugs, medicaments and biological substances; Z91.018 Allergy to other foods; Z68.32 Body mass index [BMI] 32.0-32.9, adult; Z79.899 Other long term (current) drug therapy
CPT/HCPCS: 36415; 71045; 76775; 80048; 80053; 81001; 83735; 84132; 84484; 85025; 93005; G0378; J2405

== ENCOUNTER 2020-11-15 23:39 | Emergency (ER) | payer MEDICAID ==
[~2020-11-15] VITALS: Ht 167.6 cm; Wt 86.2 kg
[~2020-11-15 23:39] MED LIST changes: -ASPI-231 PO; +CLON0.1T PO; +MET50T PO; +METH250T4 PO; -METO-158 PO
[2020-11-16 00:04] LABS: Basophils # (auto) 0.1 10 ^3/uL (0-0.2); Basophils % (auto) 0.7 % (0.0-2.0); Eosinophils # (auto) 0.1 10 ^3/uL (0-0.8); Eosinophils % (auto) 0.5 % (0.0-7.0); Hematocrit 46.4 % (41.0-53.0); Hemoglobin 16.7 g/dL (13.5-17.5); Lymphocytes # (auto) 3.3 10 ^3/uL (0.4-5.4); Lymphocytes % (auto) 29.4 % (10.0-50.0); Mean Corpuscular Hemoglobin 30.1 pg (28.0-32.0); Mean Corpuscular Hgb Conc. 35.9 g/dL (32.0-36.0); Mean Corpuscular Volume 83.7 fL (80.0-100.0); Monocytes # (auto) 1.1 10 ^3/uL (0-1.3); Monocytes % (auto) 9.6 % (0.0-12.0); Neutrophils # (auto) 6.8 10 ^3/uL (1.6-8.6); Neutrophils % (auto) 59.8 % (37.0-80.0); Nucleated Red Blood Cells % 0.1 %; Platelet Count (auto) 254 10^3/uL (140-450); Red Blood Cells 5.54 10^6/uL (4.5-5.90); White Blood Cell 11.4 10^3/uL (4.4-10.8)
[2020-11-16] MEDS ORDERED: DIPH25CA46 PO (00:14)
[2020-11-16] MEDS ORDERED: ASPI-325 PO (00:14)
[2020-11-16] MEDS ORDERED: ENALAPRILAT 1.25 MG/ML-1ML VIAL IV ONE ×2 (00:15→00:38)
[2020-11-16 00:19] LABS: Albumin 3.3 g/dL (3.4-5.0); Anion Gap 6 (5-15); BUN/Creatinine Ratio 17.9; Blood Urea Nitrogen 15 mg/dL (7-18); Carbon Dioxide 28 mmol/L (21-32); Chloride 97 mmol/L (98-107); GFR African American 118 mL/min; GFR Non-African American 98 mL/min; Glucose 90 mg/dL (74-106); Potassium 3.7 mmol/L (3.5-5.1); Sodium 131 mmol/L (136-145)
[2020-11-16 00:24] LABS: Alanine Aminotransferase 42 U/L (16-61); Alkaline Phosphatase 91 U/L (45-117); Aspartate Aminotransferase 22 U/L (15-37); Bilirubin, Total 0.4 mg/dL (0.2-1.0); Total Protein 6.8 g/dL (6.4-8.2)
[2020-11-16 00:25] LABS: INR 1.02 (0.9-1.15); Partial Thromboplastin Time 26.3 sec (23.0-31.2)
[2020-11-16 02:40] VITALS: BP 159/91
== END 2020-11-16 02:50 | disposition home or self-care (01) ==
LOC: ER 23:40
DX: I10 Essential (primary) hypertension (principal); Z88.6 Allergy status to analgesic agent; Z88.8 Allergy status to other drugs, medicaments and biological substances
CPT/HCPCS: 36415; 80053; 83880; 84484; 85025; 85610; 85730; 93005; 96374

== ENCOUNTER 2021-07-09 11:24 | Emergency (ER) | payer MEDICAID ==
[~2021-07-09] VITALS: Ht 167.6 cm; Wt 81.6 kg
[~2021-07-09 11:24] MED LIST changes: +ASPI-325 PO; +DIPH-599 PO; -METH250T4 PO; +METH250T8 PO
[2021-07-09] MEDS ORDERED: SODIUM CHLORIDE 0.9% 1,000 ML IV ONE (12:45)
[2021-07-09 13:23] LABS: Urine Bacteria NONE SEEN /hpf (None Seen); Urine Blood 2+ /uL (Negative); Urine Specific Gravity 1.009 (1.001-1.035); Urine WBC 12 /hpf (0 - 3)
[2021-07-09] MEDS ORDERED: cefTRIAXone 1GM/50ML D5W 50 ML IV ONE (15:15)
[2021-07-09] MEDS ORDERED: TAMSULOSIN HYDROCHLORIDE 0.4 MG CAP PO ONE (15:15)
[2021-07-09 15:41] LABS: Basophils # (auto) 0.1 10 ^3/uL (0-0.2); Basophils % (auto) 0.7 % (0.0-2.0); Eosinophils # (auto) 0 10 ^3/uL (0-0.8); Eosinophils % (auto) 0.3 % (0.0-7.0); Hematocrit 47.4 % (41.0-53.0); Hemoglobin 16.3 g/dL (13.5-17.5); Lymphocytes # (auto) 2.3 10 ^3/uL (0.4-5.4); Lymphocytes % (auto) 20.7 % (10.0-50.0); Mean Corpuscular Hemoglobin 29.2 pg (28.0-32.0); Mean Corpuscular Hgb Conc. 34.3 g/dL (32.0-36.0); Mean Corpuscular Volume 85.2 fL (80.0-100.0); Monocytes # (auto) 0.5 10 ^3/uL (0-1.3); Monocytes % (auto) 4.7 % (0.0-12.0); Neutrophils % (auto) 73.6 % (37.0-80.0); Red Blood Cells 5.56 10^6/uL (4.5-5.90); Red Cell Distribution Width 13.9 % (11.8-14.3); White Blood Cell 10.9 10^3/uL (4.4-10.8)
[2021-07-09 15:53] LABS: Albumin 3.7 g/dL (3.4-5.0); Calcium 8.3 mg/dL (8.5-10.1); Magnesium 3.2 mg/dL (1.6-2.6)
[2021-07-09 15:57] LABS: BUN/Creatinine Ratio 15.6; Bilirubin, Total 0.5 mg/dL (0.2-1.0); Total Protein 7.4 g/dL (6.4-8.2)
[2021-07-09 17:37] VITALS: BP 160/79
== END 2021-07-09 17:40 | disposition home or self-care (01) ==
LOC: ER 11:24
DX: R33.9 Retention of urine, unspecified (principal); I10 Essential (primary) hypertension; N40.1 Benign prostatic hyperplasia with lower urinary tract symptoms; I25.10 Atherosclerotic heart disease of native coronary artery without angina pectoris; Z79.82 Long term (current) use of aspirin; Z79.899 Other long term (current) drug therapy; Z88.8 Allergy status to other drugs, medicaments and biological substances; Z91.018 Allergy to other foods
CPT/HCPCS: 36415; 71046; 74176; 80053; 81001; 83690; 83735; 85025; 93005; 96361; 96365; 99285; J0696; J7030

== ENCOUNTER 2021-07-14 00:43 | Emergency (ER) | payer MEDICAID ==
[~2021-07-14] VITALS: Ht 167.6 cm; Wt 81.6 kg
[2021-07-14] MEDS ORDERED: cloNIDine HCL 0.1 MG TAB PO ONE (00:45)
[2021-07-14] MEDS ORDERED: cloNIDine HCL 0.1 MG TAB ONE (00:50)
[2021-07-14 02:08] VITALS: BP 116/71
== END 2021-07-14 04:33 | disposition home or self-care (01) ==
LOC: ER 00:43
DX: I10 Essential (primary) hypertension (principal); R50.9 Fever, unspecified

== ENCOUNTER 2021-10-03 08:41 | Emergency (ER) | payer MEDICARE, MEDICAID ==
[~2021-10-03] VITALS: Ht 167.6 cm; Wt 108.9 kg
[2021-10-03] MEDS ORDERED: hydrALAZINE HCL 20 MG/ML VL IV ONE (09:45)
[2021-10-03 10:18] LABS: Basophils # (auto) 0.1 10 ^3/uL (0-0.2); Eosinophils # (auto) 0.1 10 ^3/uL (0-0.8); Hematocrit 43.8 % (41.0-53.0); Hemoglobin 15.1 g/dL (13.5-17.5); Lymphocytes # (auto) 1.4 10 ^3/uL (0.4-5.4); Lymphocytes % (auto) 16.1 % (10.0-50.0); Mean Corpuscular Hemoglobin 28.8 pg (28.0-32.0); Mean Corpuscular Hgb Conc. 34.4 g/dL (32.0-36.0); Mean Corpuscular Volume 83.8 fL (80.0-100.0); Monocytes # (auto) 0.5 10 ^3/uL (0-1.3); Monocytes % (auto) 5.4 % (0.0-12.0); Neutrophils # (auto) 6.6 10 ^3/uL (1.6-8.6); Neutrophils % (auto) 76.5 % (37.0-80.0); Nucleated Red Blood Cells % 0.1 %; Red Blood Cells 5.22 10^6/uL (4.5-5.90); Red Cell Distribution Width 13.8 % (11.8-14.3); White Blood Cell 8.6 10^3/uL (4.4-10.8)
[2021-10-03 10:55] LABS: Potassium 3.7 mmol/L (3.5-5.1)
[2021-10-03 11:04] LABS: Albumin 3.3 g/dL (3.4-5.0); BUN/Creatinine Ratio 19.8; Bilirubin, Total 0.7 mg/dL (0.2-1.0); Calcium 8.2 mg/dL (8.5-10.1); Total Protein 6.6 g/dL (6.4-8.2)
[2021-10-03 11:11] LABS: INR 1.04 (0.9-1.15); Partial Thromboplastin Time 28.6 sec (23.6-33.0)
[2021-10-03 13:20] VITALS: BP 144/90
[2021-10-03 17:11] LABS: Urine Bacteria MOD /hpf (None Seen); Urine Blood Negative /uL (Negative); Urine Mucus FEW (None Seen); Urine Specific Gravity 1.012 (1.001-1.035); Urine WBC 3 /hpf (0 - 3)
== END 2021-10-03 13:29 | disposition home or self-care (01) ==
LOC: ER 08:41 → EDBD 08:41 → ER 13:27
DX: I16.0 Hypertensive urgency (principal); R04.0 Epistaxis; R51.9 Headache, unspecified; I25.10 Atherosclerotic heart disease of native coronary artery without angina pectoris; Z79.82 Long term (current) use of aspirin; Z79.899 Other long term (current) drug therapy; Z88.8 Allergy status to other drugs, medicaments and biological substances; Z91.018 Allergy to other foods
CPT/HCPCS: 36415; 71045; 80053; 81001; 84484; 85025; 85610; 85730; 93005

== ENCOUNTER 2021-10-22 19:28 | Emergency (ER) | payer MEDICARE, MEDICAID ==
[~2021-10-22] VITALS: Ht 167.6 cm; Wt 81.6 kg
[2021-10-23 01:30] LABS: Urine Bacteria NONE SEEN /hpf (None Seen); Urine Blood 3+ /uL (Negative); Urine Specific Gravity 1.014 (1.001-1.035); Urine WBC 288 /hpf (0 - 3); Urine WBC Clumps PRESENT /hpf (None Seen)
[2021-10-23 02:22] VITALS: BP 130/94
== END 2021-10-23 02:26 | disposition home or self-care (01) ==
LOC: ER 19:28
DX: T83.031A Leakage of indwelling urethral catheter, initial encounter (principal); R33.9 Retention of urine, unspecified; I10 Essential (primary) hypertension; I25.10 Atherosclerotic heart disease of native coronary artery without angina pectoris; Z79.899 Other long term (current) drug therapy; Z79.82 Long term (current) use of aspirin; Z88.8 Allergy status to other drugs, medicaments and biological substances; Z91.018 Allergy to other foods
CPT/HCPCS: 51702; 81001

== ENCOUNTER 2021-11-02 22:41 | Inpatient (IN) | payer MEDICARE, MEDICAID ==
[~2021-11-02] VITALS: Ht 170.2 cm; Wt 90.9 kg
[2021-11-03 00:25] LABS: Basophils # (auto) 0.1 10 ^3/uL (0-0.2); Basophils % (auto) 0.8 % (0.0-2.0); Eosinophils # (auto) 0.1 10 ^3/uL (0-0.8); Hematocrit 44.6 % (41.0-53.0); Hemoglobin 15.8 g/dL (13.5-17.5); Lymphocytes # (auto) 1.9 10 ^3/uL (0.4-5.4); Lymphocytes % (auto) 21.3 % (10.0-50.0); Mean Corpuscular Hemoglobin 29.9 pg (28.0-32.0); Mean Corpuscular Hgb Conc. 35.4 g/dL (32.0-36.0); Mean Corpuscular Volume 84.3 fL (80.0-100.0); Monocytes # (auto) 0.6 10 ^3/uL (0-1.3); Monocytes % (auto) 6.7 % (0.0-12.0); Neutrophils # (auto) 6.2 10 ^3/uL (1.6-8.6); Neutrophils % (auto) 70.2 % (37.0-80.0); Nucleated Red Blood Cells % 0.1 %; Red Blood Cells 5.29 10^6/uL (4.5-5.90); Red Cell Distribution Width 13.5 % (11.8-14.3); White Blood Cell 8.8 10^3/uL (4.4-10.8)
[2021-11-03 00:38] LABS: Anion Gap 10 (5-15); Blood Urea Nitrogen 24 mg/dL (7-18); Carbon Dioxide 26 mmol/L (21-32); Chloride 102 mmol/L (98-107); Glucose 102 mg/dL (74-106); Potassium 3.9 mmol/L (3.5-5.1); Sodium 138 mmol/L (136-145)
[2021-11-03 00:39] LABS: Albumin 3.7 g/dL (3.4-5.0); Calcium 8.6 mg/dL (8.5-10.1); GFR African American 87 mL/min; GFR Non-African American 72 mL/min
[2021-11-03 00:42] LABS: Alanine Aminotransferase 34 U/L (16-61); Alkaline Phosphatase 93 U/L (45-117); Aspartate Aminotransferase 27 U/L (15-37); Bilirubin, Total 0.4 mg/dL (0.2-1.0); Total Protein 7.1 g/dL (6.4-8.2)
[2021-11-03 00:59] LABS: Blood Alcohol < 3.0 mg/dL (0-5)
[2021-11-03] MEDS ORDERED: MORPHINE SULFATE INJECTION 2 MG/ML SYRG IV PRN ×2 (03:00→04:15)
[2021-11-03] MEDS ORDERED: NITROGLYCERIN 0.4 MG SL TAB SL PRN (04:15)
[2021-11-03] MEDS: ACETAMINOPHEN 325 MG TAB PO PRN ×3 (05:35→23:48)
[2021-11-03] MEDS: SODIUM CHLOR 0.9% PF (SALINE LOCK) 10ML VIAL/SYR IV SCH ×3 (06:14→21:47)
[2021-11-03 07:21] LABS: Basophils # (auto) 0.1 10 ^3/uL (0-0.2); Eosinophils # (auto) 0.1 10 ^3/uL (0-0.8); Eosinophils % (auto) 0.7 % (0.0-7.0); Hematocrit 43.6 % (41.0-53.0); Hemoglobin 15.6 g/dL (13.5-17.5); Lymphocytes # (auto) 2.9 10 ^3/uL (0.4-5.4); Lymphocytes % (auto) 30.4 % (10.0-50.0); Mean Corpuscular Hgb Conc. 35.7 g/dL (32.0-36.0); Mean Corpuscular Volume 84.1 fL (80.0-100.0); Monocytes # (auto) 0.7 10 ^3/uL (0-1.3); Monocytes % (auto) 7.4 % (0.0-12.0); Neutrophils # (auto) 5.7 10 ^3/uL (1.6-8.6); Neutrophils % (auto) 60.5 % (37.0-80.0); Nucleated Red Blood Cells % 0.1 %; Red Blood Cells 5.18 10^6/uL (4.5-5.90); Red Cell Distribution Width 13.6 % (11.8-14.3); White Blood Cell 9.4 10^3/uL (4.4-10.8)
[2021-11-03 07:36] LABS: Albumin 3.3 g/dL (3.4-5.0); Calcium 8.2 mg/dL (8.5-10.1); Potassium 3.3 mmol/L (3.5-5.1)
[2021-11-03 07:41] LABS: BUN/Creatinine Ratio 18.2; Bilirubin, Total 0.7 mg/dL (0.2-1.0)
[2021-11-03] MEDS ORDERED: LORazepam 2MG/ML-1ML VIAL IV PRN (08:45)
[2021-11-03] MEDS: ASPirin 81 mg TAB PO SCH (11:35)
[2021-11-03] MEDS: METOPROLOL TARTRATE 25 MG TAB PO SCH ×2 (11:35→21:47)
[2021-11-03 12:10] LABS: Alcohol, Urine < 3.0 mg/dL (0-10); Amphetamine Screen, Urine NEGATIVE (NEGATIVE); Barbiturate Scree,Urine NEGATIVE (NEGATIVE); Benzodiazephine Screen, Urine NEGATIVE (NEGATIVE); Cannabinoid Screen, Urine NEGATIVE (NEGATIVE); Cocaine Screen, Urine NEGATIVE (NEGATIVE); Opiate Scree,Urine NEGATIVE (NEGATIVE); Phencyclidine Screen, Urine NEGATIVE (NEGATIVE)
[2021-11-03] MEDS: TAMSULOSIN HYDROCHLORIDE 0.4 MG CAP PO SCH (18:32)
[2021-11-03] MEDS: ATORVASTATIN 20 MG TAB PO SCH (21:47)
[2021-11-03 22:00] VITALS: BP 132/86
[2021-11-03 22:54] VITALS: BP 132/86
[2021-11-04] MEDS ORDERED: NIFEdipine 10 MG CAP PO PRN (01:00)
[2021-11-04] MEDS: ONDANSETRON HCL 4 MG/2 ML VIAL IV PRN ×2 (03:08→11:35)
[2021-11-04 05:00] VITALS: BP 129/79
[2021-11-04] MEDS: SODIUM CHLOR 0.9% PF (SALINE LOCK) 10ML VIAL/SYR IV SCH ×3 (06:07→22:00)
[2021-11-04 06:15] LABS: Basophils # (auto) 0.1 10 ^3/uL (0-0.2); Basophils % (auto) 0.6 % (0.0-2.0); Eosinophils # (auto) 0.1 10 ^3/uL (0-0.8); Eosinophils % (auto) 0.7 % (0.0-7.0); Hematocrit 42.4 % (41.0-53.0); Hemoglobin 15.1 g/dL (13.5-17.5); Lymphocytes # (auto) 2.3 10 ^3/uL (0.4-5.4); Lymphocytes % (auto) 22.3 % (10.0-50.0); Mean Corpuscular Hemoglobin 29.9 pg (28.0-32.0); Mean Corpuscular Hgb Conc. 35.7 g/dL (32.0-36.0); Mean Corpuscular Volume 83.9 fL (80.0-100.0); Monocytes # (auto) 0.5 10 ^3/uL (0-1.3); Monocytes % (auto) 5.3 % (0.0-12.0); Neutrophils # (auto) 7.2 10 ^3/uL (1.6-8.6); Neutrophils % (auto) 71.1 % (37.0-80.0); Nucleated Red Blood Cells % 0.1 %; Red Blood Cells 5.06 10^6/uL (4.5-5.90); Red Cell Distribution Width 13.3 % (11.8-14.3); White Blood Cell 10.1 10^3/uL (4.4-10.8)
[2021-11-04 06:28] LABS: Albumin 3.3 g/dL (3.4-5.0); BUN/Creatinine Ratio 23.6; Calcium 8.5 mg/dL (8.5-10.1); Magnesium 2.4 mg/dL (1.6-2.6); Potassium 3.7 mmol/L (3.5-5.1)
[2021-11-04 06:59] LABS: Bilirubin, Total 0.8 mg/dL (0.2-1.0); Total Protein 6.9 g/dL (6.4-8.2)
[2021-11-04 08:00] VITALS: BP 120/83
[2021-11-04 08:15] VITALS: BP 120/83
[2021-11-04] MEDS: METOPROLOL TARTRATE 25 MG TAB PO SCH ×2 (10:00→22:17)
[2021-11-04] MEDS: ASPirin 81 mg TAB PO SCH (11:12)
[2021-11-04 12:00] VITALS: BP 136/83
[2021-11-04 16:00] VITALS: BP 170/94
[2021-11-04] MEDS ORDERED: NIFEdipine 10 MG CAP PO ONE (17:45)
[2021-11-04] MEDS: TAMSULOSIN HYDROCHLORIDE 0.4 MG CAP PO SCH (18:45)
[2021-11-04 22:00] VITALS: BP 146/93
[2021-11-04] MEDS ORDERED: NIFEdipine 10 MG CAP PO SCH (22:00)
[2021-11-04] MEDS: NIFEdipine ER 30 MG TAB PO SCH (22:12)
[2021-11-04] MEDS: ATORVASTATIN 20 MG TAB PO SCH (22:16)
[2021-11-05] MEDS: HYDROcodone-ACET 5/325MG TAB PO PRN ×2 (01:18→05:46)
[2021-11-05] MEDS: DOCUSATE SOD 100 MG CAP PO PRN ×2 (04:56→23:37)
[2021-11-05 05:00] VITALS: BP 149/91
[2021-11-05] MEDS: SODIUM CHLOR 0.9% PF (SALINE LOCK) 10ML VIAL/SYR IV SCH ×3 (06:30→22:11)
[2021-11-05 07:55] VITALS: BP 105/79
[2021-11-05 08:00] VITALS: BP 105/79
[2021-11-05] MEDS: NIFEdipine ER 30 MG TAB PO SCH ×2 (10:00→22:00)
[2021-11-05 12:55] VITALS: BP 142/86
[2021-11-05] MEDS: ASPirin 81 mg TAB PO SCH (15:02)
[2021-11-05] MEDS: METOPROLOL TARTRATE 25 MG TAB PO SCH ×2 (15:05→22:12)
[2021-11-05 17:10] VITALS: BP 133/83
[2021-11-05] MEDS: TAMSULOSIN HYDROCHLORIDE 0.4 MG CAP PO SCH (18:00)
[2021-11-05 22:00] VITALS: BP 157/95
[2021-11-05] MEDS: ATORVASTATIN 20 MG TAB PO SCH (22:12)
[2021-11-05] MEDS: cloNIDine HCL 0.1 MG TAB PO PRN (23:14)
[2021-11-06] MEDS: ONDANSETRON HCL 4 MG/2 ML VIAL IV PRN (00:50)
[2021-11-06] MEDS ORDERED: cloNIDine 0.1 mg/24hr 7 DAY PATCH TD ONE (04:00)
[2021-11-06] MEDS ORDERED: cloNIDine HCL 0.1 MG TAB PO ONE (04:15)
[2021-11-06 05:00] VITALS: BP 186/111
[2021-11-06 05:25] VITALS: BP 161/89
[2021-11-06] MEDS: SODIUM CHLOR 0.9% PF (SALINE LOCK) 10ML VIAL/SYR IV SCH ×3 (06:01→21:56)
[2021-11-06 06:23] VITALS: BP 148/89
[2021-11-06] MEDS: HYDROcodone-ACET 5/325MG TAB PO PRN (08:30)
[2021-11-06 08:55] VITALS: BP 157/86
[2021-11-06] MEDS: ASPirin 81 mg TAB PO SCH (10:07)
[2021-11-06] MEDS: NIFEdipine ER 30 MG TAB PO SCH ×2 (10:07→21:59)
[2021-11-06] MEDS: METOPROLOL TARTRATE 25 MG TAB PO SCH ×2 (10:08→21:57)
[2021-11-06 12:40] VITALS: BP 153/99
[2021-11-06] MEDS ORDERED: PANTOPRAZOLE 40 MG TAB PO ONE (14:45)
[2021-11-06] MEDS: cloNIDine HCL 0.1 MG TAB PO PRN (14:58)
[2021-11-06 16:45] VITALS: BP 144/93
[2021-11-06] MEDS: TAMSULOSIN HYDROCHLORIDE 0.4 MG CAP PO SCH (17:25)
[2021-11-06] MEDS: ATORVASTATIN 20 MG TAB PO SCH (21:56)
[2021-11-07] VITALS (7 sets, daily range): BP systolic 142–167; BP diastolic 85–99
[2021-11-07] MEDS: cloNIDine HCL 0.1 MG TAB PO PRN ×3 (03:21→14:30)
[2021-11-07] MEDS: SODIUM CHLOR 0.9% PF (SALINE LOCK) 10ML VIAL/SYR IV SCH ×3 (05:57→21:32)
[2021-11-07] MEDS: METOPROLOL TARTRATE 25 MG TAB PO SCH ×2 (09:10→21:38)
[2021-11-07] MEDS: PANTOPRAZOLE 40 MG TAB PO SCH (09:11)
[2021-11-07] MEDS: NIFEdipine ER 30 MG TAB PO SCH (09:12)
[2021-11-07] MEDS: ASPirin 81 mg TAB PO SCH (09:19)
[2021-11-07] MEDS: TAMSULOSIN HYDROCHLORIDE 0.4 MG CAP PO SCH (18:00)
[2021-11-07] MEDS: ATORVASTATIN 20 MG TAB PO SCH (21:32)
[2021-11-08 05:00] VITALS: BP 155/81
[2021-11-08 05:50] LABS: Magnesium 2.7 mg/dL (1.6-2.6); Potassium 3.9 mmol/L (3.5-5.1)
[2021-11-08] MEDS: SODIUM CHLOR 0.9% PF (SALINE LOCK) 10ML VIAL/SYR IV SCH ×2 (06:52→14:00)
[2021-11-08] MEDS: PANTOPRAZOLE 40 MG TAB PO SCH (08:14)
[2021-11-08] MEDS: ASPirin 81 mg TAB PO SCH (08:14)
[2021-11-08] MEDS: METOPROLOL TARTRATE 25 MG TAB PO SCH (08:14)
[2021-11-08 09:09] VITALS: BP 141/90
[2021-11-08] MEDS ORDERED: NIFEdipine ER 30 MG TAB PO SCH (10:00)
[2021-11-08 13:00] VITALS: BP 153/99
[2021-11-08] MEDS ORDERED: LACTULOSE 20Gm/30ML SOLN PO ONE (13:45)
[2021-11-08 14:32] VITALS: BP 153/99
[2021-11-08] MEDS ORDERED: DOCU-94 PO (15:45)
[2021-11-08] MEDS ORDERED: NIFE90TA49 PO (15:45)
[2021-11-08] MEDS ORDERED: ATOR20TA PO (15:45)
[2021-11-08] MEDS ORDERED: METO-462 PO (15:45)
[2021-11-08] MEDS ORDERED: ASPI-325 PO (15:46)
[2021-11-08 16:37] VITALS: BP 151/79
[2021-11-08 17:19] VITALS: BP 139/85
== END 2021-11-08 18:10 | disposition home health service (06) | DRG 64 ==
LOC: ER 22:41 → TELE 11-03 04:07 → TELE-WESTW 11-03 22:20
PROVIDERS: ADMIT Nurse Practitioner Family; ATTEND Internal Medicine
DX: I63.9 Cerebral infarction, unspecified (principal); I67.83 Posterior reversible encephalopathy syndrome; I16.1 Hypertensive emergency; E66.01 Morbid (severe) obesity due to excess calories; E87.6 Hypokalemia; F41.1 Generalized anxiety disorder; I25.10 Atherosclerotic heart disease of native coronary artery without angina pectoris; N40.0 Benign prostatic hyperplasia without lower urinary tract symptoms; R29.810 Facial weakness; R20.9 Unspecified disturbances of skin sensation; K29.70 Gastritis, unspecified, without bleeding; Z20.822 Contact with and (suspected) exposure to COVID-19; I10 Essential (primary) hypertension; Z79.82 Long term (current) use of aspirin; Z79.899 Other long term (current) drug therapy; Z86.73 Personal history of transient ischemic attack (TIA), and cerebral infarction without residual deficits; Z91.19 Patient's noncompliance with other medical treatment and regimen; Z82.0 Family history of epilepsy and other diseases of the nervous system; Z82.49 Family history of ischemic heart disease and other diseases of the circulatory system; Z88.8 Allergy status to other drugs, medicaments and biological substances; Z91.018 Allergy to other foods; Z68.33 Body mass index [BMI] 33.0-33.9, adult
CPT/HCPCS: 36415; 70450; 71045; 76881; 80053; 80061; 80307; 80320; 83735; 84132; 84443; 84484; 85025; 93306; 93886; 97163; 99291; G0378; J2405

== ENCOUNTER 2022-01-16 19:30 | Inpatient (IN) | payer MEDICARE, MEDICAID ==
[~2022-01-16] VITALS: Ht 162.6 cm; Wt 97.4 kg
[~2022-01-16 19:30] MED LIST changes: +DOCU-94 PO; -MET50T PO; -METH250T8 PO
[2022-01-16 20:24] LABS: Basophils # (auto) 0.1 10 ^3/uL (0-0.2); Basophils % (auto) 1.1 % (0.0-2.0); Eosinophils # (auto) 0.2 10 ^3/uL (0-0.8); Eosinophils % (auto) 2.9 % (0.0-7.0); Hematocrit 38.4 % (41.0-53.0); Hemoglobin 13.1 g/dL (13.5-17.5); Lymphocytes # (auto) 1.8 10 ^3/uL (0.4-5.4); Lymphocytes % (auto) 29.8 % (10.0-50.0); Mean Corpuscular Hemoglobin 28.6 pg (28.0-32.0); Monocytes # (auto) 0.5 10 ^3/uL (0-1.3); Neutrophils # (auto) 3.6 10 ^3/uL (1.6-8.6); Neutrophils % (auto) 58.2 % (37.0-80.0); Red Blood Cells 4.57 10^6/uL (4.5-5.90); White Blood Cell 6.2 10^3/uL (4.4-10.8)
[2022-01-16 20:39] LABS: INR 0.97 (0.9-1.15)
[2022-01-16 20:44] LABS: Albumin 3.3 g/dL (3.4-5.0); BUN/Creatinine Ratio 17.5; Potassium 4.1 mmol/L (3.5-5.1)
[2022-01-16 20:47] LABS: Bilirubin, Total 0.2 mg/dL (0.2-1.0); Total Protein 6.3 g/dL (6.4-8.2)
[2022-01-16] MEDS ORDERED: MORPHINE SULFATE INJ 2 MG/ml SYRG IV PRN (22:00)
[2022-01-16] MEDS ORDERED: NITROGLYCERIN 0.4 MG SL TAB SL PRN (22:00)
[2022-01-16] MEDS: ATORVASTATIN 20 MG TAB PO SCH (22:41)
[2022-01-16] MEDS: METOPROLOL SUCCINATE XL 50 MG TAB PO SCH (22:41)
[2022-01-17] MEDS: cloNIDine HCL 0.1 MG TAB PO PRN (00:23)
[2022-01-17] MEDS ORDERED: METO-159 PO (05:50)
[2022-01-17] MEDS ORDERED: MIN25T PO (05:50)
[2022-01-17 06:14] VITALS: BP 169/89
[2022-01-17 08:21] VITALS: BP 134/78
[2022-01-17 08:36] LABS: Basophils # (auto) 0.1 10 ^3/uL (0-0.2); Basophils % (auto) 1.2 % (0.0-2.0); Eosinophils # (auto) 0.1 10 ^3/uL (0-0.8); Eosinophils % (auto) 2.1 % (0.0-7.0); Hematocrit 37.6 % (41.0-53.0); Hemoglobin 12.9 g/dL (13.5-17.5); Lymphocytes # (auto) 2.1 10 ^3/uL (0.4-5.4); Lymphocytes % (auto) 33.6 % (10.0-50.0); Mean Corpuscular Hemoglobin 28.9 pg (28.0-32.0); Mean Corpuscular Hgb Conc. 34.3 g/dL (32.0-36.0); Mean Corpuscular Volume 84.2 fL (80.0-100.0); Monocytes # (auto) 0.5 10 ^3/uL (0-1.3); Monocytes % (auto) 8.2 % (0.0-12.0); Neutrophils # (auto) 3.5 10 ^3/uL (1.6-8.6); Neutrophils % (auto) 54.9 % (37.0-80.0); Red Blood Cells 4.46 10^6/uL (4.5-5.90); Red Cell Distribution Width 13.8 % (11.8-14.3); White Blood Cell 6.3 10^3/uL (4.4-10.8)
[2022-01-17 09:03] LABS: Potassium 3.8 mmol/L (3.5-5.1)
[2022-01-17 09:13] LABS: BUN/Creatinine Ratio 15.7; Bilirubin, Total 0.3 mg/dL (0.2-1.0); Calcium 8.2 mg/dL (8.5-10.1)
[2022-01-17] MEDS ORDERED: LORazepam 2MG/ML-1ML VIAL IV PRN (09:45)
[2022-01-17] MEDS: METOPROLOL SUCCINATE XL 50 MG TAB PO SCH (09:59)
[2022-01-17] MEDS ORDERED: ASPirin 81 mg TAB PO SCH (10:00)
[2022-01-17] MEDS ORDERED: HCTZ 25 MG TAB PO SCH (10:00)
[2022-01-17] MEDS ORDERED: NIFEdipine ER 30 MG TAB PO SCH (10:00)
[2022-01-17] MEDS ORDERED: PANTOPRAZOLE 40 MG TAB PO SCH (10:00)
[2022-01-17] MEDS ORDERED: NIFEdipine ER 30 MG TAB PO ONE (10:00)
[2022-01-17] MEDS: HCTZ 25 MG TAB PO SCH (10:03)
[2022-01-17] MEDS ORDERED: KETOROLAC TROMETH 30 MG/ML 1ML VIAL IV ONE (10:30)
[2022-01-17] MEDS ORDERED: MINOXIDIL 2.5 MG TAB PO ONE (10:45)
[2022-01-17 13:02] VITALS: BP 153/93
[2022-01-17 13:48] VITALS: BP 148/86
[2022-01-17] MEDS ORDERED: MORPHINE SULFATE INJ 2 MG/ml SYRG IV ONE (15:45)
[2022-01-17 17:14] VITALS: BP 149/89
[2022-01-17 22:00] VITALS: BP 153/97
[2022-01-17] MEDS ORDERED: MINOXIDIL 2.5 MG TAB PO SCH (22:00)
[2022-01-17 22:33] LABS: Urine Bacteria FEW /hpf (None Seen); Urine Blood Negative /uL (Negative); Urine Specific Gravity 1.012 (1.001-1.035); Urine WBC 20 /hpf (0 - 3)
[2022-01-17] MEDS ORDERED: METOPROLOL SUCCINATE XL 50 MG TAB PO ONE (22:45)
[2022-01-17] MEDS: ATORVASTATIN 20 MG TAB PO SCH (23:04)
[2022-01-17] MEDS: ACETAMINOPHEN 325 MG TAB PO PRN (23:07)
[2022-01-18] VITALS (7 sets, daily range): BP systolic 129–170; BP diastolic 59–92
[2022-01-18] MEDS: cloNIDine HCL 0.1 MG TAB PO PRN (04:53)
[2022-01-18] MEDS ORDERED: METOPROLOL TARTRATE 50 MG TAB PO SCH (10:00)
[2022-01-18] MEDS ORDERED: MINOXIDIL 2.5 MG TAB PO SCH (10:00)
[2022-01-18] MEDS ORDERED: ERTAPENEM SOD INJ 1 GM in SODIUM CHL 0.9% 50 ML IV ONE (10:15)
[2022-01-18] MEDS: HCTZ 25 MG TAB PO SCH (10:38)
[2022-01-18] MEDS: METOPROLOL TARTRATE 50 MG TAB PO SCH ×2 (10:39→21:52)
[2022-01-18] MEDS ORDERED: cloNIDine HCL 0.1 MG TAB PO PRN (10:45)
[2022-01-18] MEDS ORDERED: NIFEdipine ER 30 MG TAB PO ONE (15:00)
[2022-01-18] MEDS ORDERED: MINOXIDIL 10 MG TAB PO ONE (18:30)
[2022-01-18] MEDS: ONDANSETRON HCL 4 MG/2 ML VIAL IV PRN (20:07)
[2022-01-18] MEDS: ACETAMINOPHEN 325 MG TAB PO PRN (20:10)
[2022-01-18] MEDS: ATORVASTATIN 20 MG TAB PO SCH (21:51)
[2022-01-18] MEDS: MINOXIDIL 2.5 MG TAB PO SCH (21:53)
[2022-01-19 05:00] VITALS: BP 108/64
[2022-01-19] MEDS: MINOXIDIL 2.5 MG TAB PO SCH ×2 (05:35→21:51)
[2022-01-19] MEDS: ACETAMINOPHEN 325 MG TAB PO PRN (06:16)
[2022-01-19 08:18] VITALS: BP 131/76
[2022-01-19] MEDS: HCTZ 25 MG TAB PO SCH (10:22)
[2022-01-19] MEDS: ERTAPENEM SOD INJ 1 GM in SODIUM CHL 0.9% 50 ML IV SCH (10:22)
[2022-01-19] MEDS: METOPROLOL TARTRATE 50 MG TAB PO SCH ×2 (10:23→21:51)
[2022-01-19 12:35] VITALS: BP 127/76
[2022-01-19] MEDS: ONDANSETRON HCL 4 MG/2 ML VIAL IV PRN (12:48)
[2022-01-19 16:45] VITALS: BP 140/84
[2022-01-19] MEDS: ATORVASTATIN 20 MG TAB PO SCH (21:51)
[2022-01-19 22:00] VITALS: BP 135/79
[2022-01-20 05:00] VITALS: BP 120/70
[2022-01-20 09:32] VITALS: BP 167/90
[2022-01-20] MEDS: ERTAPENEM SOD INJ 1 GM in SODIUM CHL 0.9% 50 ML IV SCH (09:53)
[2022-01-20] MEDS: HCTZ 25 MG TAB PO SCH (09:54)
[2022-01-20] MEDS: MINOXIDIL 2.5 MG TAB PO SCH (09:55)
[2022-01-20] MEDS: METOPROLOL TARTRATE 50 MG TAB PO SCH (09:56)
[2022-01-20] MEDS ORDERED: HYDR25TA5 PO (10:27)
[2022-01-20] MEDS ORDERED: MIN25T PO (10:27)
[2022-01-20] MEDS: ONDANSETRON HCL 4 MG/2 ML VIAL IV PRN (11:26)
[2022-01-20 12:11] VITALS: BP 159/95
[2022-01-20 13:07] VITALS: BP 132/81
[2022-01-20] MEDS: ACETAMINOPHEN 325 MG TAB PO PRN (13:11)
== END 2022-01-20 16:30 | disposition home health service (06) | DRG 64 ==
LOC: ER 19:30 → EDBD 19:30 → TELE 21:49 → TELE-CENTR 01-17 04:50
PROVIDERS: ADMIT Nurse Practitioner; ATTEND Internal Medicine
PROC: 05HB33Z Insertion of Infusion Device into Right Basilic Vein, Percutaneous Approach (ICD-10-PCS; principal; 2022-01-18)
PROC: B54MZZA Ultrasonography of Right Upper Extremity Veins, Guidance (ICD-10-PCS; 2022-01-18)
DX: I62.02 Nontraumatic subacute subdural hemorrhage (principal); I50.31 Acute diastolic (congestive) heart failure; N39.0 Urinary tract infection, site not specified; Z16.12 Extended spectrum beta lactamase (ESBL) resistance; E66.01 Morbid (severe) obesity due to excess calories; I16.0 Hypertensive urgency; I25.10 Atherosclerotic heart disease of native coronary artery without angina pectoris; I11.0 Hypertensive heart disease with heart failure; N40.0 Benign prostatic hyperplasia without lower urinary tract symptoms; Z20.822 Contact with and (suspected) exposure to COVID-19; B96.20 Unspecified Escherichia coli [E. coli] as the cause of diseases classified elsewhere; Z79.899 Other long term (current) drug therapy; Z82.0 Family history of epilepsy and other diseases of the nervous system; Z82.49 Family history of ischemic heart disease and other diseases of the circulatory system; Z86.73 Personal history of transient ischemic attack (TIA), and cerebral infarction without residual deficits; Z88.8 Allergy status to other drugs, medicaments and biological substances; Z68.36 Body mass index [BMI] 36.0-36.9, adult; I11.9 Hypertensive heart disease without heart failure
CPT/HCPCS: 36415; 70450; 70551; 80053; 81001; 84484; 85025; 85610; 87081; 93005; G0378; J1335; J2405

== ENCOUNTER 2023-12-26 12:04 | Emergency (ER) | payer OTHER, MEDICAID ==
[~2023-12-26] VITALS: Ht 170.2 cm; Wt 91.0 kg
[~2023-12-26 12:04] MED LIST changes: -DIPH-599 PO; +DIPH-751 PO; +HYDR25TA5 PO; +METO-159 PO; +MIN25T PO
[2023-12-26 12:59] LABS: Basophils # (auto) 0.1 10 ^3/uL (0-0.2); Basophils % (auto) 0.8 % (0.0-2.0); Eosinophils # (auto) 0.1 10 ^3/uL (0-0.8); Eosinophils % (auto) 0.9 % (0.0-7.0); Hematocrit 43.7 % (41.0-53.0); Hemoglobin 15.1 g/dL (13.5-17.5); Lymphocytes # (auto) 1.7 10 ^3/uL (0.4-5.4); Lymphocytes % (auto) 17.1 % (10.0-50.0); Mean Corpuscular Hemoglobin 29.2 pg (28.0-32.0); Mean Corpuscular Hgb Conc. 34.5 g/dL (32.0-36.0); Mean Corpuscular Volume 84.6 fL (80.0-100.0); Monocytes # (auto) 0.6 10 ^3/uL (0-1.3); Monocytes % (auto) 5.9 % (0.0-12.0); Neutrophils # (auto) 7.5 10 ^3/uL (1.6-8.6); Neutrophils % (auto) 75.3 % (37.0-80.0); Nucleated Red Blood Cells % 0.1 %; Red Blood Cells 5.17 10^6/uL (4.5-5.90); Red Cell Distribution Width 13.6 % (11.8-14.3)
[2023-12-26 13:09] LABS: Chloride 105 mmol/L (98-107); Potassium 3.3 mmol/L (3.5-5.1); Sodium 137 mmol/L (136-145)
[2023-12-26 13:10] LABS: Anion Gap 6 (5-15); Calcium 9.2 mg/dL (8.5-10.1); Carbon Dioxide 26 mmol/L (20-30)
[2023-12-26 13:15] LABS: BUN/Creatinine Ratio 14.8 (10.0-20.0); Blood Urea Nitrogen 17 mg/dL (9-23); Glucose 103 mg/dL (74-106)
[2023-12-26 13:32] LABS: INR 1.03 (0.9-1.15); Prothrombin Time 10.9 sec (9.3-11.8)
[2023-12-26] MEDS: ACETAMINOPHEN 325 MG TAB PO ONE (13:33)
[2023-12-26] MEDS ORDERED: DOCUSATE SOD 100 MG CAP PO PRN (14:45)
[2023-12-26 16:03] LABS: Magnesium 2.2 mg/dL (1.6-2.6)
[2023-12-26 16:05] LABS: Phosphorus 2.8 mg/dL (2.4-5.1)
[2023-12-26 16:25] VITALS: PULSE 65; RESP 16; O2SAT 97
[2023-12-26] MEDS: POTASSIUM EFFERVESENT TAB 25 MEQ PO ONE (16:25)
[2023-12-26 16:42] LABS: Erythrocyte Sedimentation Rate 11 mm/hr (0-20)
[2023-12-26] MEDS ORDERED: CLOPIDOGREL 300 MG TAB PO ONE (17:00)
[2023-12-26] MEDS ORDERED: MORPHINE SULFATE INJ 2 MG/ml SYRG IV PRN (17:00)
[2023-12-26] MEDS ORDERED: NITROGLYCERIN 0.4 MG SL TAB SL PRN (17:00)
[2023-12-26] MEDS: ASPirin 325 MG TAB PO ONE (18:26)
[2023-12-26] MEDS: CLOPIDOGREL BISULFATE 75 MG TAB PO ONE (18:27)
[2023-12-26] MEDS: SODIUM CHLORIDE 0.9% 1,000 ML IV SCH (19:08)
[2023-12-26 19:40] VITALS: BP 146/87; PULSE 90; RESP 18; TEMP 98.3; O2SAT 98
[2023-12-26] MEDS ORDERED: MINOXIDIL 2.5 MG TAB PO SCH (22:00)
[2023-12-26] MEDS ORDERED: ATORVASTATIN 20 MG TAB PO SCH (22:00)
[2023-12-27] MEDS ORDERED: hydroCHLOROthiazide 25 MG TAB PO SCH (07:00)
[2023-12-27 08:06] LABS: RPR Non Reactive (Non Reactive)
[2023-12-27] MEDS ORDERED: ASPirin-EC 81 mg tab PO SCH (10:00)
[2023-12-27] MEDS ORDERED: ASPirin 81 mg TAB PO SCH (10:00)
[2023-12-27] MEDS ORDERED: ENOXAPARIN SOD 40 MG/0.4 ML SYRINGE SC SCH (10:00)
[2023-12-27 12:06] LABS: Homocyst(e)ine 16.6 umol/L (0.0-17.2)
[2023-12-27] MEDS ORDERED: METOPROLOL SUCCINATE XL 50 MG TAB PO SCH (22:00)
== END 2023-12-26 19:30 | disposition short-term general hospital (02) ==
LOC: EDBD 12:04 → ER 12:04
DX: G45.9 Transient cerebral ischemic attack, unspecified (principal); F41.9 Anxiety disorder, unspecified; I10 Essential (primary) hypertension; Z86.73 Personal history of transient ischemic attack (TIA), and cerebral infarction without residual deficits; Z91.018 Allergy to other foods; Z88.8 Allergy status to other drugs, medicaments and biological substances; Z79.899 Other long term (current) drug therapy
CPT/HCPCS: 36415; 70450; 71046; 80048; 83090; 83735; 84100; 84443; 84484; 85025; 85610; 85652; 86592; 93005; 93886; 99291